=== PATIENT | male | born 1930 | race Caucasian/White ===

== ENCOUNTER 2016-07-27 08:20 | Inpatient (IN) | payer OTHER ==
[~2016-07-27] VITALS: Ht 167.6 cm; Wt 80.2 kg
[~2016-07-27 08:20] MED LIST: ASPEC325 PO; METO50TA17 PO; XRL10 PO
[2016-07-27] MEDS ORDERED: ONDANSETRON INJ 2 MG/ML 2 ML VIAL IV STA (08:30)
[2016-07-27] MEDS ORDERED: MoRPHine SULFATE 4 MG/ML 1 ML CARP\\VIAL IV PRN (08:30)
--- NOTE | 2016-07-27 08:38 | EMERGENCY ROOM VISIT NOTE ---
History Report prepared by Kevin: Darian Prescott Under the Supervision of: Dr. Ollie Gaytan D.O. First contact with patient: 08:25 Chief Complaint: WEAKNESS Stated Complaint: WEAKNESS History of Present Illness The patient is an 86 year old male who presents to the Emergency Room with complaints of intermittent left-sided abdominal pain that started yesterday. He was brought here via ambulance. He does not know whether he was given any medications on the way in. The patient says nothing makes the pain better or worse. He denies any nausea, vomiting, chest pain, shortness of breath, coughing , or urinary symptoms. The patient has no reported history of diverticulitis. He does not give himself shots. The patient has no breathing problems. He had a colonoscopy before but has no cancer history. Per the nursing staff, the patient is here for weakness and an inability to ambulate. He is 88% on room air. Source of History: patient, nursing staff Onset: Yesterday Position: abdomen (right sided) Timing: intermittent Associated Symptoms: + weakness, No SOB, No chest pain, No cough, No nausea , No urinary symptoms, No vomiting Note: Associated symptoms: Inability to ambulate. Review of Systems See HPI for pertinent positives & negatives. A total of 10 systems reviewed and were otherwise negative. Past Medical & Surgical Medical Problems: (1) BPH (benign prostatic hyperplasia) (2) Heart disease Surgical Problems: (1) Hx of heart artery stent Family History No pertinent family history Social History Smoking Status: Former Smoker Marital Status: Housing Status: lives with family Occupation Status: employed Current/Historical Medications Scheduled , 1 OR BID Allopurinol (Zyloprim *), 300 MG PO DAILY Atorvastatin (Lipitor), 20 MG PO DAILY Diltiazem Hcl Cd (Cardizem Cd *), 120 MG PO DAILY Esomeprazole Magnesium (Nexium), 40 MG PO DAILY Metoprolol Tartrate (Lopressor) (Lopressor), 25 MG PO BID Rivaroxaban (Xarelto), 20 MG PO DAILY Valacyclovir (Valtrex), 1,000 MG PO TID Scheduled PRN Tramadol (Ultram), 50 MG PO Q4H PRN for Pain Allergies Coded Allergies: Latex1 -Allergic Contact Dermititis (Verified Allergy, Unknown, Unknown rxn, 07/27/16) Adhesives (Verified Adverse Reaction, Unknown, Unknown Rxn, 07/27/16) Physical Exam Vital Signs Date Time Temp Pulse Resp B/P Pulse Ox O2 Delivery O2 Flow Rate FiO2 07/27/16 13:31 76 20 140/81 95 Nasal Cannula 3.0 07/27/16 12:30 79 16 130/65 96 Nasal Cannula 2.0 07/27/16 12:19 78 07/27/16 11:00 77 15 131/62 Nasal Cannula 3.0 07/27/16 10:00 78 16 123/58 95 Room Air 07/27/16 08:26 88 07/27/16 08:25 37.7 86 16 146/86 88 Room Air Physical Exam GENERAL: Patient is awake, alert, and somewhat anxious appearing. EYES: The conjunctivae are clear. The pupils are round and reactive. EARS, NOSE, MOUTH AND THROAT: The nose is without any evidence of any deformity. Mucous membranes are moist tongue is midline NECK: The neck is nontender and supple. RESPIRATORY: Lung sounds diminished throughout. Scattered rhonchi in all lung baker. Tachypnea noted. CARDIOVASCULAR: Heart sounds were tachycardic but regular. No definite murmur appreciated. GASTROINTESTINAL: Abdomen was mildly distended. Left lower quadrant tenderness to palpation, mild guarding was noted in left lower quadrant. MUSCULOSKELETAL/EXTREMITIES: There is no evidence of gross deformity full range of motion is noted in the hips and shoulders SKIN: Pedal edema bilaterally. NEUROLOGIC: Patient is awake and oriented to place, person, and situation. Strength was symmetric. Medical Decision & Procedures ER Provider Diagnostic Interpretation: X ray results and stated below per my interpretation and radiology interpretation. Other radiology results per my review and radiologist interpretation: CHEST ONE VIEW PORTABLE HISTORY: Generalized abdominal pain. COMPARISON: Chest 09/10/2014. FINDINGS: No pneumothorax. The heart is mildly enlarged. Widening of the superior mediastinum may be due to the portable technique. There is interstitial and vascular thickening. Left basilar densities. Possible trace left pleural effusion. IMPRESSION: 1. Cardiomegaly with interstitial and vascular thickening. This favors mild congestive change. 2. Trace left pleural effusion. 3. Superior mediastinal widening may be due to the portable technique. 4. Patchy densities at the left lung base may represent atelectasis or pneumonia. Electronically signed by: Hany Medina M.D. 07/27/2016 9:[address] OF THE ABDOMEN AND PELVIS WITHOUT CONTRAST CLINICAL HISTORY: Left lower quadrant pain. COMPARISON STUDY: No previous studies for comparison. TECHNIQUE: Axial images of the abdomen and pelvis were obtained without IV contrast. Images were reviewed in the axial, sagittal, and coronal planes. FINDINGS: Visualized portions of the lung bases demonstrate groundglass and linear opacities which likely reflect atelectasis. Evaluation of the abdomen and pelvis is suboptimal on this unenhanced exam. Unenhanced images of the liver, spleen, adrenal glands, kidneys and pancreas are unremarkable. There is mild distention of the gallbladder. There are several parapelvic cysts. There are no renal, ureteral or bladder calculi. There is no evidence for a bowel obstruction. Note is made of extensive left colon diverticulosis without evidence for acute diverticulitis. Note is made of a bilobed low-attenuation lobulated abnormality within the left hemipelvis that measures 9 x 5.3 x 4.5 cm. This is predominantly water attenuation. This contains a calcification. This is suboptimally assessed on this unenhanced exam. Of note, there is moderate infiltration adjacent to the left external iliac and common femoral arteries and veins with loss of fat planes between these 2 vessels. There is slight dilatation of the left common femoral vein. No suspicious osseous lesion is present. There is mild dilatation of the infrarenal abdominal aorta without aneurysmal dilatation. No lymphadenopathy is present. The appendix is normal. Note is made of mild infiltration of the anterior abdominal wall along the left aspect of the umbilicus. IMPRESSION: 1. Moderate inflammation with loss of fat plane between the left external iliac and common femoral arteries and veins. In the absence of recent surgery, the findings represent nonspecific inflammation/edema which are suboptimally assessed on this unenhanced exam. A left lower extremity venous and arterial Doppler might be considered for earlier evaluation. Differential considerations include deep venous thrombus, atypical infection or less likely AV fistula. 2. 9 x 5.3 x 4.5 cm lobulated cystic abnormality within left hemipelvis. This is nonspecific but not acute. This could reflect a perineural cyst or nerve sheath tumor. Alternately, a seroma/lymphocele could have this imaging appearance. A follow-up CT in 6 months to ensure stability is recommended. 3. Extensive left colon diverticulosis without evidence for acute diverticulitis. Electronically signed by: Aleksandar De Paz M.D. 07/27/2016 9:[address]AST CT DOSE: HISTORY: Mental status change altered MS TECHNIQUE: Multiaxial CT images of the head were performed without the use of intravenous contrast. Comparison: None. Findings: The paranasal sinuses and mastoid air cells are clear. The calvarium and skull base are intact. The ventricles and sulci are within normal limits. There is no mass, hematoma, midline shift, or acute infarct. Findings of age-related atrophy. Mild chronic small vessel change. Impression: No acute intracranial abnormality. Age-related change Electronically signed by: Ernesto Shen M.D. 07/27/2016 9:32 AM LEFT LOWER EXTREMITY ARTERIAL DOPPLER STUDY CLINICAL HISTORY: Left leg pain. COMPARISON STUDY: Abdomen and pelvis CT 07/27/2016. FINDINGS: Increased echogenicity surrounding the left common femoral artery and vein. This likely corresponds to the inflammatory change on the same day abdomen and pelvis CT. However, the left common femoral artery is widely patent and demonstrates a normal peak systolic velocity of 79 cm/s. There are triphasic waveforms at the left common femoral artery. Scattered calcified plaque seen throughout the left lower extremity arterial systems. Monophasic low velocity waveforms seen within the left peroneal and left dorsalis pedis artery. Otherwise, the remaining left lower arterial system demonstrate biphasic to triphasic waveforms with normal velocities. IMPRESSION: 1. Increased echogenicity surrounding the left common femoral artery and vein. This likely corresponds to the inflammatory change seen on the same day abdomen and pelvis CT. 2. Otherwise, the left common femoral artery is patent. 3. Low velocity monophasic waveform seen within the left peroneal and left dorsalis pedis arteries consistent with diffuse atherosclerotic disease. Otherwise, no significant stenosis or occlusion seen within the left lower extremity arterial system. Electronically signed by: Hany Medina M.D. 07/27/2016 12:19 PM LEFT LOWER EXTREMITY VENOUS DOPPLER HISTORY: Left leg pain. COMPARISON STUDY: None. FINDINGS: There is normal compressibility, flow, and augmentation within the left lower extremity deep venous system. IMPRESSION: No DVT within the left lower extremity. Electronically signed by: Hany Medina M.D. 07/27/2016 12:13 PM Laboratory Results 07/27/16 08:50 Red Blood Count 4.51, Mean Corpuscular Volume 86.9, Mean Corpuscular Hemoglobin 29.3, Mean Corpuscular Hemoglobin Concent 33.7, Mean Platelet Volume 10.5, Neutrophils (%) (Auto) 73.5, Lymphocytes (%) (Auto) 11.9, Monocytes (%) (Auto) 12.2, Eosinophils (%) (Auto) 1.6, Basophils (%) (Auto) 0.6, Neutrophils # (Auto ) 8.99, Lymphocytes # (Auto) 1.46, Monocytes # (Auto) 1.49, Eosinophils # (Auto ) 0.20, Basophils # (Auto) 0.07 07/27/16 08:50 Test 07/27/16 08:50 07/27/16 09:03 07/27/16 09:05 07/27/16 11:15 White Blood Count 12.24 K/uL (4.8-10.8) Red Blood Count 4.51 M/uL (4.7-6.1) Hemoglobin 13.2 g/dL (14.0-18.0) Hematocrit 39.2 % (42-52) Mean Corpuscular Volume 86.9 fL (80-100) Mean Corpuscular Hemoglobin 29.3 pg (25-34) Mean Corpuscular Hemoglobin Concent 33.7 g/dl (32-36) Platelet Count 237 K/uL (130-400) Mean Platelet Volume 10.5 fL (7.4-10.4) Neutrophils (%) (Auto) 73.5 % Lymphocytes (%) (Auto) 11.9 % Monocytes (%) (Auto) 12.2 % Eosinophils (%) (Auto) 1.6 % Basophils (%) (Auto) 0.6 % Neutrophils # (Auto) 8.99 K/uL (1.4-6.5) Lymphocytes # (Auto) 1.46 K/uL (1.2-3.4) Monocytes # (Auto) 1.49 K/uL (0.11-0.59) Eosinophils # (Auto) 0.20 K/uL (0-0.5) Basophils # (Auto) 0.07 K/uL (0-0.2) RDW Standard Deviation 45.5 fL (36.4-46.3) RDW Coefficient of Variation 14.3 % (11.5-14.5) Immature Granulocyte % (Auto) 0.2 % Immature Granulocyte # (Auto) 0.03 K/uL (0.00-0.02) Prothrombin Time 13.3 SECONDS (9.0-12.0) Prothromb Time International Ratio 1.2 (0.9-1.1) Activated Partial Thromboplast Time 29.0 SECONDS (21.0-31.0) Partial Thromboplastin Ratio 1.1 Anion Gap 8.0 mmol/L (3-11) Est Creatinine Clear Calc Drug Dose 55.6 ml/min Estimated GFR () 82.2 Estimated GFR (Non- 70.9 BUN/Creatinine Ratio 15.4 (10-20) Calcium Level 8.3 mg/dl (8.5-10.1) Total Bilirubin 1.2 mg/dl (0.2-1) Direct Bilirubin 0.5 mg/dl (0-0.2) Aspartate Amino Transf (AST/SGOT) 20 U/L (15-37) Alanine Aminotransferase (ALT/SGPT) 19 U/L (12-78) Alkaline Phosphatase 72 U/L (45-117) Total Creatine Kinase 161 U/L (39-308) Creatine Kinase MB 5.3 ng/ml (0.5-3.6) Creatine Kinase MB Ratio 3.3 (0-3.0) Troponin I < 0.015 ng/ml (0-0.045) Total Protein 6.4 gm/dl (6.4-8.2) Albumin 2.6 gm/dl (3.4-5.0) Lipase 123 U/L (73-393) Lyme Disease IgG Antibody NEG (NEG) Lyme Disease IgM Antibody NEG (NEG) Bedside Lactic Acid Venous 1.06 mmol/L (0.90-1.70) Venous Blood pH 7.39 (7.36-7.41) Venous Blood Partial Pressure CO2 51 mmHg (38.0-50.0) Venous Blood Partial Pressure O2 28 mmHg Venous Blood HCO3 30 mmol/L Venous Blood Oxygen Saturation < 60.0 % Venous Blood Base Excess 4.2 mmol/L Urine Color DK YELLOW Urine Appearance CLEAR (CLEAR) Urine pH 5.0 (4.5-7.5) Urine Specific [place] 1.026 (1.000-1.030) Urine Protein NEG (NEG) Urine Glucose (UA) NEG (NEG) Urine Ketones TRACE (NEG) Urine Occult Blood NEG (NEG) Urine Nitrite NEG (NEG) Urine Bilirubin NEG (NEG) Urine Urobilinogen POS (NEG) Urine Leukocyte Esterase TRACE (NEG) Urine WBC (Auto) 1-5 /hpf (0-5) Urine RBC (Auto) 0-4 /hpf (0-4) Urine Hyaline Casts (Auto) 1-5 /lpf (0-5) Urine Epithelial Cells (Auto) 10-20 /lpf (0-5) Urine Bacteria (Auto) NEG (NEG) Test 07/27/16 13:49 Laboratory results per my review. Medications Administered Medications (Trade) Dose Ordered Sig/Aretha Route Start Time Stop Time Status Last Admin Dose Admin Levofloxacin (Levaquin / D5W) 750 mg NOW STAT IV 07/27/16 09:07 07/27/16 09:08 DC 07/27/16 11:13 750 MG Levofloxacin 750 mg 750 mg NOW ONCE IV 07/27/16 10:30 07/27/16 10:31 DC 07/27/16 11:15 750 MG Sodium Chloride 500 ml @ 999 mls/hr Q31M STAT IV 07/27/16 12:26 07/27/16 12:56 DC 07/27/16 12:45 999 MLS/HR Sodium Chloride (Nss 1000ml) 1,000 ml @ 125 mls/hr Q8H STAT IV 07/27/16 12:26 07/27/16 20:25 07/27/16 13:25 125 MLS/HR ECG Indication: weakness Rate (beats per minute): 78 Rhythm: normal sinus Findings: no ectopy, other (RBBB pattern noted) Change: no significant change (from September 11 2014) ED Course 0828: The patient was evaluated in room B2. A complete history and physical examination were performed. 0830: Ordered Zofran Inj 4 mg IV, Morphine Sulfate Inj 4 mg IV PRN. 0907: Ordered Levaquin / D5W 750 mg IV. 1031: I reevaluated the patient and he is resting comfortably. 1226: Ordered NSS 1000 ml @ 125 mls/hr IV, NSS 500 ml @ 999 mls/hr IV. 1227: I reevaluated the patient and he is resting comfortably. The patient verbally expressed understanding and agreement of the treatment plan. The patient will be evaluated for further treatment. 1235: I discussed the patient with Dr. Combs - blade operator - he will evaluate the patient for further treatment. Medical Decision Differential diagnosis: Etiologies such as metabolic, infection, hypo/hyperglycemia, electrolyte abnormalities, cardiac sources, intracerebral event, toxicologic, neurologic, as well as others were entertained. Nursing notes reviewed. Additional history is obtained from the family members. The patient is an 86-year-old male who presented to the emergency apartment by ambulance. When I initially evaluated the patient he was complaining of left- sided abdominal pain. He did have a blotchy area over the left side of his abdomen but he was very tender to palpation. The patient was also found to be hypoxic and had a fever. His overall condition appear to be consistent with pneumonia which was confirmed on chest x-ray. Because of his abdominal pain as CT the abdomen and pelvis was obtained. When the patient's family arrived they made me aware that the patient has significant dementia and was recently diagnosed with left side of his abdomen shingles. This may explain the rash that was noted and also the pain but the CAT scan showed an area around his left femoral artery and vein which could be consistent with inflammation. I'm unsure of the etiology of this. Dopplers did not show any vascular compromise. I discussed the patient's laboratory and radiographic studies with him. He was treated with supple and oxygen IV fluids and IV antibiotic. He was also given IV pain medication. On subsequent reevaluation he was feeling much better. I discussed his case with his primary care physician. He has agreed to evaluate the patient in the emergency department for further management and disposition. Consults Time Called: 1233 Consulting Physician: Dr. Paige Zaidi - blade operator Returned Call: 1235 I discussed the patient with Dr. Combs - blade operator - he will evaluate the patient for further treatment. Impression Primary Impression: PNA (pneumonia) Additional Impressions: Hypoxia, Fever, Altered mental status, Abdominal pain Scribe Attestation The scribe's documentation has been prepared under my direction and personally reviewed by me in its entirety. I confirm that the note above accurately reflects all work, treatment, procedures, and medical decision making performed by me. Departure Information Dispostion Being Evaluated By Hospitalist Referrals Saqib Carey M.D. (PCP) Patient Instructions A Signature Page, My [facility]
--- NOTE | 2016-07-27 09:01 | DIAGNOSTIC IMAGING REPORT ---
CHEST ONE VIEW PORTABLE HISTORY: Generalized abdominal pain. COMPARISON: Chest 09/10/2014. FINDINGS: No pneumothorax. The heart is mildly enlarged. Widening of the superior mediastinum may be due to the portable technique. There is interstitial and vascular thickening. Left basilar densities. Possible trace left pleural effusion. IMPRESSION: 1. Cardiomegaly with interstitial and vascular thickening. This favors mild congestive change. 2. Trace left pleural effusion. 3. Superior mediastinal widening may be due to the portable technique. 4. Patchy densities at the left lung base may represent atelectasis or pneumonia. Electronically signed by: Hany Medina M.D. 07/27/2016 9:00 AM
[2016-07-27] MEDS ORDERED: LEVAQUIN 750MG / 150ML D5W IV STA (09:07)
[2016-07-27 09:17] LABS: BASO % 0.6 %; BASO ABS # 0.07 K/uL (0-0.2); COMPLETE YES; EOS % 1.6 %; HEMATOCRIT 39.2 % (42-52); IG% 0.2 %; LYMPH % 11.9 %; LYMPH ABS # 1.46 K/uL (1.2-3.4); MEAN CELL VOLUME 86.9 fL (80-100); MEAN CORPUSCULAR HEMOGLOBIN 29.3 pg (25-34); MEAN CORPUSCULAR HGB CONC 33.7 g/dl (32-36); MEAN PLATELET VOLUME 10.5 fL (7.4-10.4); MONO % 12.2 %; NEUT % 73.5 %; PLATELET COUNT 237 K/uL (130-400); RED BLOOD COUNT 4.51 M/uL (4.7-6.1); WHITE BLOOD COUNT 12.24 K/uL (4.8-10.8)
[2016-07-27 09:21] LABS: VEN BLOOD GAS BASE EXCESS 4.2 mmol/L; VENOUS BLOOD GAS PCO2 51 mmHg (38.0-50.0); VENOUS BLOOD GAS PO2 28 mmHg
[2016-07-27 09:27] LABS: INR 1.2 (0.9-1.1); PARTIAL THROMBOPLASTIN RATIO 1.1; PROTHROMBIN TIME (PATIENT) 13.3 SECONDS (9.0-12.0)
[2016-07-27 09:33] LABS: VEN BLD GAS O2 SATURATION < 60.0 %
--- NOTE | 2016-07-27 09:33 | DIAGNOSTIC IMAGING REPORT ---
HEAD CT NONCONTRAST CT DOSE: HISTORY: Mental status change altered MS TECHNIQUE: Multiaxial CT images of the head were performed without the use of intravenous contrast. Comparison: None. Findings: The paranasal sinuses and mastoid air cells are clear. The calvarium and skull base are intact. The ventricles and sulci are within normal limits. There is no mass, hematoma, midline shift, or acute infarct. Findings of age-related atrophy. Mild chronic small vessel change. Impression: No acute intracranial abnormality. Age-related change Electronically signed by: Ernesto Shen M.D. 07/27/2016 9:32 AM
[2016-07-27] MEDS ORDERED: VALA500T60 PO (09:36)
[2016-07-27] MEDS ORDERED: METO25TA56 PO (09:36)
[2016-07-27] MEDS ORDERED: XRL20 PO (09:36)
[2016-07-27] MEDS ORDERED: TRAM-10 PO (09:36)
[2016-07-27 09:38] LABS: BLOOD UREA NITROGEN 15 mg/dl (7-18); CREATININE 0.97 mg/dl (0.60-1.40); GLUCOSE 138 mg/dl (70-99)
[2016-07-27 09:39] LABS: ALT/SGPT 19 U/L (12-78); AST/SGOT 20 U/L (15-37); BUN/CREATININE RATIO 15.4 (10-20); CALCIUM 8.3 mg/dl (8.5-10.1); CARBON DIOXIDE 29 mmol/L (21-32); CHLORIDE 100 mmol/L (98-107); POTASSIUM 3.5 mmol/L (3.5-5.1); SODIUM 137 mmol/L (136-145)
[2016-07-27 09:44] LABS: ALKALINE PHOSPHATASE 72 U/L (45-117); CKMB/CK RATIO 3.3 (0-3.0)
--- NOTE | 2016-07-27 09:52 | DIAGNOSTIC IMAGING REPORT ---
CT OF THE ABDOMEN AND PELVIS WITHOUT CONTRAST CLINICAL HISTORY: Left lower quadrant pain. COMPARISON STUDY: No previous studies for comparison. TECHNIQUE: Axial images of the abdomen and pelvis were obtained without IV contrast. Images were reviewed in the axial, sagittal, and coronal planes. FINDINGS: Visualized portions of the lung bases demonstrate groundglass and linear opacities which likely reflect atelectasis. Evaluation of the abdomen and pelvis is suboptimal on this unenhanced exam. Unenhanced images of the liver, spleen, adrenal glands, kidneys and pancreas are unremarkable. There is mild distention of the gallbladder. There are several parapelvic cysts. There are no renal, ureteral or bladder calculi. There is no evidence for a bowel obstruction. Note is made of extensive left colon diverticulosis without evidence for acute diverticulitis. Note is made of a bilobed low-attenuation lobulated abnormality within the left hemipelvis that measures 9 x 5.3 x 4.5 cm. This is predominantly water attenuation. This contains a calcification. This is suboptimally assessed on this unenhanced exam. Of note, there is moderate infiltration adjacent to the left external iliac and common femoral arteries and veins with loss of fat planes between these 2 vessels. There is slight dilatation of the left common femoral vein. No suspicious osseous lesion is present. There is mild dilatation of the infrarenal abdominal aorta without aneurysmal dilatation. No lymphadenopathy is present. The appendix is normal. Note is made of mild infiltration of the anterior abdominal wall along the left aspect of the umbilicus. IMPRESSION: 1. Moderate inflammation with loss of fat plane between the left external iliac and common femoral arteries and veins. In the absence of recent surgery, the findings represent nonspecific inflammation/edema which are suboptimally assessed on this unenhanced exam. A left lower extremity venous and arterial Doppler might be considered for earlier evaluation. Differential considerations include deep venous thrombus, atypical infection or less likely AV fistula. 2. 9 x 5.3 x 4.5 cm lobulated cystic abnormality within left hemipelvis. This is nonspecific but not acute. This could reflect a perineural cyst or nerve sheath tumor. Alternately, a seroma/lymphocele could have this imaging appearance. A follow-up CT in 6 months to ensure stability is recommended. 3. Extensive left colon diverticulosis without evidence for acute diverticulitis. Electronically signed by: Aleksandar De Paz M.D. 07/27/2016 9:51 AM
[2016-07-27] MEDS ORDERED: LEVAQUIN 750MG / 150ML D5W IV ONE (10:30)
[2016-07-27 11:39] LABS: URINE APPEARANCE CLEAR (CLEAR); URINE COLOR DK YELLOW; URINE NITRITE NEG (NEG); URINE SPECIFIC GRAVITY 1.026 (1.000-1.030); UROBILINOGEN POS (NEG); ZZURINE CULT IF INDIC CATH NO
[2016-07-27 11:40] LABS: MANUAL MICROSCOPIC REQUIRED? NO; REVIEW REQ? NO; URINE BILIRUBIN NEG (NEG)
--- NOTE | 2016-07-27 12:15 | DIAGNOSTIC IMAGING REPORT ---
LEFT LOWER EXTREMITY VENOUS DOPPLER HISTORY: Left leg pain. COMPARISON STUDY: None. FINDINGS: There is normal compressibility, flow, and augmentation within the left lower extremity deep venous system. IMPRESSION: No DVT within the left lower extremity. Electronically signed by: Hany Medina M.D. 07/27/2016 12:13 PM
--- NOTE | 2016-07-27 12:21 | DIAGNOSTIC IMAGING REPORT ---
LEFT LOWER EXTREMITY ARTERIAL DOPPLER STUDY CLINICAL HISTORY: Left leg pain. COMPARISON STUDY: Abdomen and pelvis CT 07/27/2016. FINDINGS: Increased echogenicity surrounding the left common femoral artery and vein. This likely corresponds to the inflammatory change on the same day abdomen and pelvis CT. However, the left common femoral artery is widely patent and demonstrates a normal peak systolic velocity of 79 cm/s. There are triphasic waveforms at the left common femoral artery. Scattered calcified plaque seen throughout the left lower extremity arterial systems. Monophasic low velocity waveforms seen within the left peroneal and left dorsalis pedis artery. Otherwise, the remaining left lower arterial system demonstrate biphasic to triphasic waveforms with normal velocities. IMPRESSION: 1. Increased echogenicity surrounding the left common femoral artery and vein. This likely corresponds to the inflammatory change seen on the same day abdomen and pelvis CT. 2. Otherwise, the left common femoral artery is patent. 3. Low velocity monophasic waveform seen within the left peroneal and left dorsalis pedis arteries consistent with diffuse atherosclerotic disease. Otherwise, no significant stenosis or occlusion seen within the left lower extremity arterial system. Electronically signed by: Hany Medina M.D. 07/27/2016 12:19 PM
[2016-07-27] MEDS ORDERED: SODIUM CHLORIDE 0.9% 1000ML 1,000 ML IV STA (12:26)
[2016-07-27] MEDS ORDERED: SODIUM CHLORIDE 0.9% 500ML 500 ML IV STA (12:26)
[2016-07-27] MEDS ORDERED: OPTIRAY 320 IV PRN (13:00)
[2016-07-27 13:52] LABS: LYME DISEASE AB IGG NEG (NEG); LYME DISEASE AB IGM NEG (NEG)
[2016-07-27] MEDS ORDERED: NXM/40 PO (14:02)
[2016-07-27] MEDS ORDERED: ATOR-22 PO (14:02)
[2016-07-27 14:46] LABS: ARTERIAL BLD GAS O2 SATURATION 96.1 % (90-95); ARTERIAL BLOOD GAS HCO3 24 mmol/L (19-24); ARTERIAL BLOOD GAS PO2 82 mm/Hg (80-95); ARTERIAL BLOOD GAS pH 7.41 (7.35-7.45)
[2016-07-27 14:49] LABS: ALLEN TEST POS (POS); O2 ADMINISTRATION 2L
--- NOTE | 2016-07-27 14:49 | DIAGNOSTIC IMAGING REPORT ---
CHEST CT WITH CONTRAST CT DOSE: 442.42 mGy.cm HISTORY: Abnormal chest x-ray. LEFT BASE INFILTRATE VS ATELECTASIS TECHNIQUE: Multiaxial CT images of the chest were performed following the intravenous administration of contrast. COMPARISON: Chest 07/27/2016. Abdomen and pelvis CT 07/27/2016. FINDINGS: The central airways are patent. No pneumothorax. Mild emphysema. Focal consolidation along the medial aspect of the left lung apex with associated calcifications. This is consistent with chronic scarring/fibrosis with the from prior granulomatous disease. Small amount of peripheral consolidation within the base of the left lower lobe. There appears to be a trace left pleural effusion. Mild dependent changes seen at the right lung base. No suspicious lytic or blastic osseous lesions. The gallbladder remains distended. The visualized liver, spleen, and adrenal glands are unremarkable. Small hiatus hernia. No mediastinal or hilar lymphadenopathy. The heart remains enlarged. Normal caliber thoracic aorta with no evidence for dissection. The central airways are patent. IMPRESSION: 1. Small amount of peripheral consolidation within the base of the left lower lobe. This favors atelectasis. However, a pneumonia could also have a similar appearance. 2. Trace left pleural effusion. 3. 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 4. Mild emphysema. 5. The gallbladder remains distended. 6. Small hiatus hernia. Electronically signed by: Hany Medina M.D. 07/27/2016 2:47 PM Dictated Date/Time: 07/27/2016 2:37 PM
[2016-07-27] MEDS ORDERED: ONDANSETRON INJ 2 MG/ML 2 ML VIAL IV PRN (15:00)
[2016-07-27] MEDS ORDERED: TRAMADOL HCL 50 MG TAB PO PRN (15:15)
[2016-07-27] MEDS: SODIUM CHLORIDE 0.9% 1000ML 1,000 ML IV SCH ×2 (15:15→23:05)
[2016-07-27] MEDS ORDERED: [UNRECOGNIZED DRUG - OTHER] OR (15:27)
[2016-07-27] MEDS ORDERED: CRDCD120 PO (15:27)
[2016-07-27] MEDS ORDERED: ALL300 PO (15:27)
[2016-07-27 20:00] VITALS: BP 149/74; PULSE 86; TEMP 37.4; O2SAT 93; Ht 167.6 cm; Wt 80.2 kg
[2016-07-27] MEDS ORDERED: CLONAZEPAM 0.5 MG TAB PO STA (21:46)
[2016-07-27] MEDS ORDERED: DO NOT ADMINISTER PNEUMOCOCCAL VACCINE PRN ×2 (22:00)
[2016-07-27] MEDS ORDERED: PNEUMOCOCCAL ADMINISTRATION CHARGE ONE (22:15)
[2016-07-27] MEDS: RIVAROXABAN 20 MG TAB PO SCH (23:00)
[2016-07-27] MEDS: METOPROLOL TARTRATE 25 MG TAB PO SCH (23:01)
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
[2016-07-28 00:22] VITALS: BP 164/74; PULSE 83; TEMP 37.4; O2SAT 91
[2016-07-28] MEDS ORDERED: ACETAMINOPHEN 500 MG TAB PO PRN (04:15)
[2016-07-28 06:55] LABS: BASO % 0.8 %; BASO ABS # 0.08 K/uL (0-0.2); COMPLETE YES; EOS % 2.1 %; HEMATOCRIT 37.8 % (42-52); IG% 0.2 %; LYMPH ABS # 1.35 K/uL (1.2-3.4); MEAN CELL VOLUME 85.1 fL (80-100); MEAN CORPUSCULAR HEMOGLOBIN 28.4 pg (25-34); MEAN CORPUSCULAR HGB CONC 33.3 g/dl (32-36); MEAN PLATELET VOLUME 10.6 fL (7.4-10.4); MONO % 12.5 %; NEUT % 71.4 %; PLATELET COUNT 227 K/uL (130-400); RED BLOOD COUNT 4.44 M/uL (4.7-6.1); WHITE BLOOD COUNT 10.36 K/uL (4.8-10.8)
[2016-07-28 07:27] LABS: BUN/CREATININE RATIO 15.7 (10-20); CALCIUM 8.4 mg/dl (8.5-10.1); CREATININE 0.83 mg/dl (0.60-1.40); MAGNESIUM 2.2 mg/dl (1.8-2.4); POTASSIUM 3.5 mmol/L (3.5-5.1)
[2016-07-28 07:29] VITALS: BP 153/74; PULSE 81; TEMP 36.5; O2SAT 93
[2016-07-28 07:37] LABS: THYROID STIMULATING HORMONE 2.16 uIu/ml (0.300-4.500)
[2016-07-28] MEDS: DILTIAZEM HCL 120 MG CAPCR PO SCH (08:10)
[2016-07-28] MEDS: ATORVASTATIN 20 MG TAB PO SCH (08:11)
[2016-07-28] MEDS: ALLOPURINOL 300 MG TAB PO SCH (08:11)
[2016-07-28] MEDS: METOPROLOL TARTRATE 25 MG TAB PO SCH ×2 (08:11→20:37)
[2016-07-28] MEDS: PANTOprazole SOD 40 MG TAB PO SCH (08:11)
[2016-07-28 09:12] LABS: URINE APPEARANCE CLEAR (CLEAR); URINE BILIRUBIN NEG (NEG); URINE COLOR YELLOW; URINE NITRITE NEG (NEG); URINE SPECIFIC GRAVITY 1.008 (1.000-1.030); UROBILINOGEN POS (NEG)
[2016-07-28] MEDS: SODIUM CHLORIDE 0.9% 1000ML 1,000 ML IV SCH ×2 (09:29→20:36)
[2016-07-28 09:34] LABS: MANUAL MICROSCOPIC REQUIRED? NO; REVIEW REQ? NO
[2016-07-28] MEDS: LEVOFLOXACIN / D5W 750 MG in PREMIXED IN D5W 150 ML IV SCH (11:27)
[2016-07-28 15:09] VITALS: BP 117/65; PULSE 57; TEMP 36.7; O2SAT 92
[2016-07-28] MEDS: RIVAROXABAN 20 MG TAB PO SCH (18:20)
[2016-07-28 20:35] VITALS: BP 133/64; PULSE 64; O2SAT 93
[2016-07-28] MEDS: CLONAZEPAM 0.5 MG TAB PO SCH (20:36)
--- NOTE | 2016-07-29 00:42 | PROGRESS NOTE ---
DATE: 07/28/2016 SUBJECTIVE: An 86-year-old male admitted with multiple medical problems including suspected left lower lobe pneumonia, herpes zoster involving the left T12 dermatome, general debilitation and weakness. Problem with his balance and equilibrium. He does have coronary artery disease. History of paroxysmal atrial fibrillation with rapid ventricular response and history of supraventricular tachycardia. The patient was admitted. He did not sleep well last night. He is feeling tired. He remained calm. There was no evidence of any agitation, but he does have confusion related to his dementia. He denied any headache or dizziness or lightheadedness. No chest pain, no shortness of breath. No cough. No abdominal pain, no nausea, no vomiting. The only pain he is still experiencing is in the left lower quadrant and groin area related to the herpes infection. He denied any pain in his back or extremities. PHYSICAL EXAMINATION: GENERAL: Well developed, in no distress. VITAL SIGNS: Blood pressure 153/74, pulse 81, respiration 20, temperature 36.5, oxygen saturation 93% on room air. SKIN: Warm and dry. He does have residual rash in the left lower quadrant. HEENT: No mucosal abnormality. NECK: No JVD. No adenopathy. HEART: Regular heart sounds. LUNGS: No evidence of any wheezing or rhonchi. ABDOMEN: Soft. He still has tenderness in the left lower quadrant related to his herpes zoster infection. BACK: No spinal tenderness. EXTREMITIES: No edema, clubbing, or cyanosis. TODAY'S LABORATORY TESTS: WBC count 10,360, hemoglobin 12.6, hematocrit 37.8, platelet count 227,000. Sodium 140, potassium 3.5, chloride 104, CO2 of 26, BUN 13, creatinine 0.83, glucose 110, calcium 8.4, magnesium 2.2, TSH 2.16. T4 of 8.7. One blood culture was reported this morning to be growing gram negative bacilli. Further identification and sensitivity is pending. A urinalysis was done this morning. He did have trace leukocyte esterase, but only 1-5 wbc's per high power field. ASSESSMENT: 1. Suspected left lower lobe pneumonia. 2. Generalized weakness and debilitation. 3. Bacteremia. Final identification of the gram negative bacilli is pending. 4. Possible urinary tract infection. 5. Coronary artery disease. 6. Dementia. PLAN: 1. Continue the same medications. 2. He is on IV Levaquin. He has remained afebrile, and his WBC count has normalized. 3. We will wait for the final culture results. 4. Continue close observation. 5. Physical and occupational therapies will be ordered.
[2016-07-29 01:36] VITALS: BP 147/73; PULSE 72; TEMP 36.3; O2SAT 92
[2016-07-29] MEDS: SODIUM CHLORIDE 0.9% 1000ML 1,000 ML IV SCH ×3 (06:42→23:40)
[2016-07-29 07:16] LABS: BASO % 0.7 %; BASO ABS # 0.06 K/uL (0-0.2); COMPLETE YES; EOS % 3.8 %; HEMATOCRIT 35.9 % (42-52); IG% 0.4 %; LYMPH % 20.2 %; LYMPH ABS # 1.69 K/uL (1.2-3.4); MEAN CELL VOLUME 84.7 fL (80-100); MEAN CORPUSCULAR HEMOGLOBIN 28.5 pg (25-34); MEAN CORPUSCULAR HGB CONC 33.7 g/dl (32-36); MEAN PLATELET VOLUME 10.4 fL (7.4-10.4); MONO % 12.4 %; NEUT % 62.5 %; PLATELET COUNT 256 K/uL (130-400); RED BLOOD COUNT 4.24 M/uL (4.7-6.1); WHITE BLOOD COUNT 8.38 K/uL (4.8-10.8)
[2016-07-29 07:41] LABS: BUN/CREATININE RATIO 15.9 (10-20); CREATININE 0.76 mg/dl (0.60-1.40); MAGNESIUM 2.2 mg/dl (1.8-2.4); POTASSIUM 3.6 mmol/L (3.5-5.1)
[2016-07-29 07:46] VITALS: BP 145/66; PULSE 63; TEMP 36.5; O2SAT 92
[2016-07-29] MEDS: PANTOprazole SOD 40 MG TAB PO SCH (09:50)
[2016-07-29] MEDS: RIVAROXABAN 20 MG TAB PO SCH (09:51)
[2016-07-29] MEDS: METOPROLOL TARTRATE 25 MG TAB PO SCH ×2 (09:51→20:20)
[2016-07-29] MEDS: DILTIAZEM HCL 120 MG CAPCR PO SCH (09:51)
[2016-07-29] MEDS: ATORVASTATIN 20 MG TAB PO SCH (09:52)
[2016-07-29] MEDS: ALLOPURINOL 300 MG TAB PO SCH (09:52)
[2016-07-29] MEDS: LEVOFLOXACIN / D5W 750 MG in PREMIXED IN D5W 150 ML IV SCH (11:27)
[2016-07-29 11:58] VITALS: BP 122/72; PULSE 60; O2SAT 92
[2016-07-29] MEDS ORDERED: MAGNESIUM HYDROXIDE SUSP 30 ML UDC PO PRN (15:30)
--- NOTE | 2016-07-29 15:43 | PROGRESS NOTE ---
DATE: 07/29/2016 DATE: 07/29/2016. SUBJECTIVE: An 86-year-old male admitted with multiple problems includin. Generalized weakness and debilitation. 2. Abnormal chest x-ray with suspicious infiltrate in the left lower base. 3. Herpes zoster involving the left T12 dermatome. 4. Bacteremia with gram negative bacilli, identification pending. 5. Coronary artery disease. 6. Dementia. 7. History of paroxysmal atrial fibrillation. 8. History of supraventricular tachycardia. The patient was admitted. All his cultures were done. He was started on IV Levaquin. Overall, his condition has improved, especially this morning. He looks much improved. He is quite awake and alert and calm. He is not having any problem during the night. He has no headache, no dizziness. No chest pain, no shortness of breath. The left lower abdominal pain has also subsided. Still residual but to a much lesser degree. No pain in his back or extremities. PHYSICAL EXAMINATION: GENERAL: Well-developed. No distress. VITAL SIGNS: Blood pressure 145/66, pulse 63, respiration 18, temperature 36.5, oxygen saturation 92% on room air. SKIN: Warm and dry. No rash. HEAD, EYES, EARS, NOSE, AND THROAT: No evidence of any mucosal abnormality. NECK: No JVD. No adenopathy. HEART: Regular heart sounds. LUNGS: Clear. ABDOMEN: Soft. There is still only very minimal residual tenderness over the skin area in the left lower quadrant. No guarding, no rebound. No organomegaly or masses. Good bowel sounds. BACK: No spinal tenderness. EXTREMITIES: No edema, clubbing, or cyanosis. LABORATORY TESTS: WBC count 8380, hemoglobin 12.1, hematocrit 35.9, platelets 247,000. Sodium 145, potassium 3.6, chloride 110, CO2 26, BUN 12, creatinine 0.76, glucose 128, calcium 8.0, magnesium 2.2. His blood culture is growing gram negative bacilli. It is indicated that possibly pseudomonas, but the final report is not back yet. His urine culture was negative. ASSESSMENT: 1. Gram negative bacilli bacteremia. 2. Generalized weakness and debilitation. 3. Herpes zoster. 4. Coronary artery disease. 5. Generalized weakness. PLAN: 1. Continuing his same medications. 2. Waiting for the final culture results. 3. Physical and occupational therapy. 4. I spoke with his daughter this morning who was in his room.
[2016-07-29 16:32] VITALS: BP 142/72; PULSE 66; TEMP 36.4; O2SAT 91
[2016-07-29] MEDS: DOCUSATE SODIUM 100 MG CAP PO SCH (17:31)
[2016-07-29] MEDS: CLONAZEPAM 0.5 MG TAB PO SCH (20:19)
[2016-07-29 23:18] VITALS: BP 180/77; PULSE 68; TEMP 37; O2SAT 93
[2016-07-30 06:24] LABS: BASO % 0.9 %; BASO ABS # 0.08 K/uL (0-0.2); COMPLETE YES; EOS % 5.1 %; HEMATOCRIT 37.6 % (42-52); IG% 0.7 %; LYMPH % 21.5 %; LYMPH ABS # 1.91 K/uL (1.2-3.4); MEAN CORPUSCULAR HEMOGLOBIN 29.1 pg (25-34); MEAN CORPUSCULAR HGB CONC 33.8 g/dl (32-36); MEAN PLATELET VOLUME 10.5 fL (7.4-10.4); MONO % 12.5 %; NEUT % 59.3 %; PLATELET COUNT 260 K/uL (130-400); RED BLOOD COUNT 4.37 M/uL (4.7-6.1)
[2016-07-30 06:51] LABS: BUN/CREATININE RATIO 10.6 (10-20); CREATININE 0.87 mg/dl (0.60-1.40); MAGNESIUM 2.5 mg/dl (1.8-2.4); POTASSIUM 3.5 mmol/L (3.5-5.1)
[2016-07-30 08:00] VITALS: BP 132/66; PULSE 65; TEMP 37.3; O2SAT 92
[2016-07-30] MEDS: DOCUSATE SODIUM 100 MG CAP PO SCH ×2 (09:16→21:30)
[2016-07-30] MEDS: PANTOprazole SOD 40 MG TAB PO SCH (09:16)
[2016-07-30] MEDS: ATORVASTATIN 20 MG TAB PO SCH (09:17)
[2016-07-30] MEDS: DILTIAZEM HCL 120 MG CAPCR PO SCH (09:17)
[2016-07-30] MEDS: ALLOPURINOL 300 MG TAB PO SCH (09:17)
[2016-07-30] MEDS: METOPROLOL TARTRATE 25 MG TAB PO SCH ×2 (09:18→21:31)
[2016-07-30] MEDS: LEVOFLOXACIN / D5W 750 MG in PREMIXED IN D5W 150 ML IV SCH (11:16)
[2016-07-30] MEDS: SODIUM CHLORIDE 0.9% 1000ML 1,000 ML IV SCH (14:49)
[2016-07-30 16:00] VITALS: O2SAT 92
[2016-07-30 16:15] VITALS: BP 132/70; PULSE 61
[2016-07-30 16:54] VITALS: BP 185/82; PULSE 72; TEMP 36.6; O2SAT 98
--- NOTE | 2016-07-30 17:38 | PROGRESS NOTE ---
DATE: 07/30/2016 An 86-year-old male, admitted with multiple medical problems including generalized weakness. He is suspected of having left lower lobe pneumonia. He had a left T12 dermatome herpes zoster. He also has bacteremia and the final culture results indicated Pseudomonas aeruginosa. He is on IV Levaquin. His medical problems also include coronary artery disease, hyperglycemia, dementia and history of paroxysmal atrial fibrillation. His condition has improved. He remains afebrile. He is resting comfortably. He denied any headache, dizziness or lightheadedness. No chest pain. No shortness of breath. No abdominal pain, no nausea, no vomiting. The pain that he was having in the left lower quadrant which was related to the skin infection is subsiding, but not completely resolved. He denied any pain in his back or extremities. PHYSICAL EXAMINATION: GENERAL: Well-developed, in no distress. VITAL SIGNS: Blood pressure 132/66, pulse 65, respirations 18, temperature 37.3 and oxygen saturation 92% on room air. SKIN: Warm and dry. He still has a residual rash in the left lower quadrant. HEENT: No mucosal abnormality. NECK: No JVD, no adenopathy. HEART: Regular heart sounds. A 2/6 systolic murmur. LUNGS: Clear. ABDOMEN: Soft, nontender, without organomegaly or masses. Good bowel sounds. BACK: No spinal or CVA tenderness. EXTREMITIES: No edema, clubbing or cyanosis. TODAY'S LABORATORY TESTS: WBC count 8900, hemoglobin 12.7, hematocrit 37.6 and platelet count 260,000. Sodium 145, potassium 3.5, chloride 109, CO2 30, BUN 9, creatinine 0.87, glucose 164, calcium 8.0 and magnesium 2.5. ASSESSMENT: 1. Bacteremia, secondary to Pseudomonas aeruginosa. 2. Cellulitis, left lower quadrant. 3. Herpes zoster, involving the left T12 dermatome. 4. General fatigue. 5. Coronary artery disease. 6. History of paroxysmal atrial fibrillation. 7. Dementia. PLAN: 1. I, at this point, suspect that what happened was his herpes zoster infection involving the left lower quadrant in the distribution of the left T12 dermatome. I suspect that he had a secondary infection secondary to Pseudomonas aeruginosa and that is the source of his bacteremia. Pneumonia is less likely based on the fact that he is really completely asymptomatic. He has not had any cough, any shortness of breath or any respiratory symptoms. 2. Continue his IV Levaquin. 3. We will discontinue his IV fluids. 4. Continue working with his therapies. 5. He will need to be on IV antibiotics for at least another 48 hours. MICHELL
[2016-07-30] MEDS: RIVAROXABAN 20 MG TAB PO SCH (18:09)
[2016-07-30] MEDS: CLONAZEPAM 0.5 MG TAB PO SCH (21:29)
[2016-07-30 21:36] VITALS: BP 170/72; PULSE 76
[2016-07-30 23:57] VITALS: BP 148/73; PULSE 72; TEMP 36.4; O2SAT 92
[2016-07-31] MEDS: SODIUM CHLORIDE 0.9% 1000ML 1,000 ML IV SCH ×2 (01:43→09:07)
[2016-07-31] MEDS: PANTOprazole SOD 40 MG TAB PO SCH (09:06)
[2016-07-31] MEDS: DOCUSATE SODIUM 100 MG CAP PO SCH ×2 (09:06→20:05)
[2016-07-31] MEDS: METOPROLOL TARTRATE 25 MG TAB PO SCH ×2 (09:06→20:07)
[2016-07-31] MEDS: ALLOPURINOL 300 MG TAB PO SCH (09:07)
[2016-07-31] MEDS: ATORVASTATIN 20 MG TAB PO SCH (09:07)
[2016-07-31] MEDS: DILTIAZEM HCL 120 MG CAPCR PO SCH (09:07)
[2016-07-31 09:09] VITALS: BP 159/74; PULSE 60; TEMP 36.6; O2SAT 95
[2016-07-31] MEDS: LEVOFLOXACIN / D5W 750 MG in PREMIXED IN D5W 150 ML IV SCH (11:33)
[2016-07-31 15:26] VITALS: BP 127/58; PULSE 56; TEMP 36.4; O2SAT 92
[2016-07-31] MEDS: RIVAROXABAN 20 MG TAB PO SCH (17:14)
[2016-07-31] MEDS ORDERED: NURSING VERBAL MED ORDER ONE (18:30)
[2016-07-31] MEDS: CLONAZEPAM 0.5 MG TAB PO SCH (20:05)
--- NOTE | 2016-07-31 21:04 | POST OPERATIVE BRIEF NOTE ---
An 86-year-old male, admitted with multiple problems includin. Generalized weakness. 2. Dehydration. 3. Herpes zoster involving the left T12 dermatome. 4. Cellulitis of the same area. 5. Pseudomonas bacteremia. 6. Coronary artery disease. 7. History of supraventricular tachycardia. 8. History of paroxysmal atrial fibrillation. The patient was admitted. Cultures were done. He was started on IV Levaquin. His condition remains quite stable at this point. He has markedly improved. He has not had any fever. No chills. He does have dementia, but he has been calm and very cooperative during his hospitalization. He denies any chest pain, no shortness of breath. No abdominal pain except in the area of the cellulitis in the left lower quadrant, but the pain has markedly improved. No pain in his back or extremities. PHYSICAL EXAMINATION: GENERAL: Well developed, in no distress. Vital signs: Blood pressure 159/74, pulse 60, respirations 18, temperature 36.6, oxygen saturation 95% on room air. SKIN: Warm and dry. No rash. HEENT: No mucosal abnormality. NECK: No JVD, no adenopathy. HEART: Regular heart sounds. LUNGS: Clear. ABDOMEN: Soft, slight tenderness in the left lower quadrant. No guarding, no rebound. Residual rash with areas of skin induration. BACK: No spinal tenderness. EXTREMITIES: No edema, clubbing or cyanosis. ASSESSMENT: 1. Pseudomonas bacteremia. 2. Cellulitis, left lower abdominal quadrant. 3. Herpes zoster, left T12 dermatome. 4. Dehydration. 5. Dementia. 6. Coronary artery disease. 7. History of paroxysmal atrial fibrillation. PLAN: 1. Overall his condition is improving. 2. Continuing all his medications without any change including his IV Levaquin. 3. Proceeding with physical and occupational therapy. Actually, the patient and his family reported to me this evening that he was able to walk in the hallway without assistance. 4. Will continue IV antibiotics for another 24-48 hours. Then I will switch him to oral Levaquin. I anticipate that he will go home once stable.
[2016-07-31 23:59] VITALS: O2SAT 94
[2016-08-01 00:01] VITALS: BP 149/68; PULSE 58; TEMP 37.1; O2SAT 94
[2016-08-01] MEDS: ATORVASTATIN 20 MG TAB PO SCH (07:24)
[2016-08-01] MEDS: ALLOPURINOL 300 MG TAB PO SCH (07:24)
[2016-08-01] MEDS: METOPROLOL TARTRATE 25 MG TAB PO SCH ×2 (07:24→19:58)
[2016-08-01 07:25] VITALS: BP 164/77; PULSE 61; TEMP 36.3; O2SAT 95
[2016-08-01] MEDS: DILTIAZEM HCL 120 MG CAPCR PO SCH (07:25)
[2016-08-01] MEDS: DOCUSATE SODIUM 100 MG CAP PO SCH ×2 (07:25→19:58)
[2016-08-01] MEDS: PANTOprazole SOD 40 MG TAB PO SCH (07:25)
[2016-08-01 10:44] LABS: BASO % 1.1 %; COMPLETE YES; EOS % 4.1 %; HEMATOCRIT 36.7 % (42-52); LYMPH % 24.7 %; LYMPH ABS # 2.31 K/uL (1.2-3.4); MEAN CORPUSCULAR HEMOGLOBIN 28.7 pg (25-34); MEAN CORPUSCULAR HGB CONC 33.8 g/dl (32-36); MEAN PLATELET VOLUME 9.6 fL (7.4-10.4); MONO % 12.3 %; NEUT % 55.8 %; PLATELET COUNT 298 K/uL (130-400); RED BLOOD COUNT 4.32 M/uL (4.7-6.1); WHITE BLOOD COUNT 9.37 K/uL (4.8-10.8)
[2016-08-01 11:14] LABS: BUN/CREATININE RATIO 11.5 (10-20); CALCIUM 8.5 mg/dl (8.5-10.1); CREATININE 0.95 mg/dl (0.60-1.40); POTASSIUM 3.6 mmol/L (3.5-5.1)
[2016-08-01] MEDS: LEVOFLOXACIN / D5W 750 MG in PREMIXED IN D5W 150 ML IV SCH (11:14)
[2016-08-01 11:17] LABS: ALB/GLOB RATIO 0.6 (0.9-2)
[2016-08-01 16:00] VITALS: O2SAT 95
[2016-08-01] MEDS: RIVAROXABAN 20 MG TAB PO SCH (16:51)
[2016-08-01 19:55] VITALS: BP 160/72; PULSE 62; O2SAT 93
[2016-08-01] MEDS: CLONAZEPAM 0.5 MG TAB PO SCH (19:55)
[2016-08-01 23:31] VITALS: BP 160/74; PULSE 66; TEMP 37.1; O2SAT 91
--- NOTE | 2016-08-01 23:40 | PROGRESS NOTE ---
DATE: 08/01/2016 An 86-year-old male, admitted with multiple problems includin. Generalized weakness. 2. Herpes zoster, involving the left T12 dermatome. 3. Cellulitis of the left lower quadrant. 4. Pseudomonas bacteremia. 5. Coronary artery disease. 6. Arterial hypertension. 7. Paroxysmal atrial fibrillation. The patient was admitted. He was continued on Valtrex, which was started prior to his admission. Also, he was started on Levaquin 750 mg daily. Initially, on his CT scan of the chest there was a suspicion that he may have a left lower lobe infiltrate, but clinically there was no evidence of any pneumonia, so this diagnosis was not really confirmed. What became more obvious is the fact that he had cellulitis of the left lower leg and his blood cultures grew Pseudomonas aeruginosa. Most likely, he had infection of the skin related to his herpes zoster and subsequently he had a bacterial infection with bacteremia. He denied any headache. No dizziness, no lightheadedness. No chest pain, no shortness of breath. No abdominal pain, no nausea, no vomiting. No pain in his back or extremities. He also has dementia, but remained quite calm and cooperative during his hospitalization. He has been receiving physical and occupational therapies and he has done well. PHYSICAL EXAMINATION: GENERAL: Well-developed, in no distress. VITAL SIGNS: Blood pressure 164/77, pulse 61, respirations 16, temperature 36.3 and oxygen saturation 95% on room air. SKIN: Warm and dry. No rash. The left lower quadrant rash is mostly resolved. HEENT: No mucosal abnormality. NECK: No JVD, no adenopathy. HEART: Regular heart sounds. LUNGS: Clear. ABDOMEN: Soft, nontender. BACK: No spinal tenderness. EXTREMITIES: No edema, clubbing or cyanosis. TODAY'S LABORATORY TESTS: WBC count 9370, hemoglobin 12.4, hematocrit 36.7 and platelet count 298,000. Sodium 143, potassium 3.6, chloride 107, CO2 31, BUN 11, creatinine 0.95, glucose 134, calcium 8.5, total bilirubin 0.9, AST 28, ALT 31, alkaline phosphatase 61, total protein 5.8 and albumin 2.2. ASSESSMENT: 1. Herpes zoster, left T12 dermatome. 2. Cellulitis. 3. Pseudomonas bacteremia. 4. Coronary artery disease. 5. Arterial hypertension. 6. Dementia. PLAN: 1. Overall, his condition has improved. He is not having any problem at this point. He remains afebrile. His WBC count has normalized. 2. He is on Levaquin 750 mg IV daily and I intend to discontinue the medication; so tomorrow will be his last dose. 3. If he remains stable, then I will send him home tomorrow morning.
[2016-08-02 07:12] VITALS: BP 149/68; PULSE 58; TEMP 36.4; O2SAT 93
[2016-08-02] MEDS ORDERED: LEVO1TAB33 PO (08:36)
--- NOTE | 2016-08-02 08:39 | Discharge Instructions ---
Discharge Instructions Admission Reason for Admission: Lll Pneum, L T12 [place], Paf, Dementia Discharge Discharge Diagnosis / Problem: HERPES ZOOSTER. CELLULITIS. PSEUDOMONAS BACTEREMIA Discharge Goals Goal(s): Decrease discomfort, Improve function, Increase independence, Improve disease control, Improve nutritional status Activity Recommendations Activity Limitations: resume your previous activity . Instructions / Follow-Up Instructions / Follow-Up DR AWAD IN ONE WEEK Current Hospital Diet Patient's current hospital diet: Regular Diet Discharge Diet Recommended Diet: AHA Diet (Heart Healthy) Pending Studies Studies pending at discharge: no Medical Emergencies . Who to Call and When: Medical Emergencies: If at any time you feel your situation is an emergency, please call 911 immediately. . Non-Emergent Contact Non-Emergency issues call your: Primary Care Provider . . "Provider Documentation" section prepared by Saqib Awad. VTE Core Measure Inpt VTE Proph given/why not?: Other Anticoagulation
[2016-08-02] MEDS: ALLOPURINOL 300 MG TAB PO SCH (08:41)
[2016-08-02] MEDS: ATORVASTATIN 20 MG TAB PO SCH (08:41)
[2016-08-02] MEDS: DILTIAZEM HCL 120 MG CAPCR PO SCH (08:41)
[2016-08-02] MEDS: PANTOprazole SOD 40 MG TAB PO SCH (08:41)
[2016-08-02 08:42] VITALS: PULSE 62
[2016-08-02] MEDS: DOCUSATE SODIUM 100 MG CAP PO SCH (08:42)
[2016-08-02] MEDS: METOPROLOL TARTRATE 25 MG TAB PO SCH (08:42)
[2016-08-02 10:12] VITALS: BP 149/68; PULSE 62; TEMP 36.4; O2SAT 93
[2016-08-02] MEDS: LEVOFLOXACIN / D5W 750 MG in PREMIXED IN D5W 150 ML IV SCH (11:00)
--- NOTE | 2016-08-02 21:48 | PROGRESS NOTE ---
DATE: 08/02/2016 SUBJECTIVE: An 86-year-old male admitted with multiple problems includin. Generalized weakness. 2. Herpes zoster involving the left T12 dermatome. 3. Cellulitis of the same area. 4. Pseudomonas aeruginosa bacteremia. 5. Coronary artery disease. 6. Paroxysmal atrial fibrillation. 7. Dementia. Overall, his condition has improved. He remained afebrile. His WBC count normalized. The rash and the pain in his left lower quadrant area resolved. He is tolerating his diet and he is doing well in therapy. He denied any headache, no dizziness, no lightheadedness. No chest pain, no shortness of breath. No abdominal pain, no nausea, no vomiting. No problem with his bowel movements. No problem urinating. No pain in his back or extremities. PHYSICAL EXAMINATION: GENERAL: Well developed in no distress. VITAL SIGNS: Blood pressure 149/68, pulse 58, respirations 20, temperature 36.4, oxygen saturation 93% on room air. SKIN: Warm and dry. No rash. HEENT: No evidence of any mucosal abnormality. NECK: Supple. Nontender. No adenopathy. No thyromegaly. No JVD. HEART: Regular heart sounds without any murmur, rub or gallop. LUNGS: Clear. ABDOMEN: Soft, nontender. BACK: No spinal tenderness. EXTREMITIES: No edema, clubbing, or cyanosis. ASSESSMENT: 1. Herpes zoster, left T12 dermatome. 2. Cellulitis involving the same area. 3. Pseudomonas bacteremia. 4. Generalized weakness. 5. Coronary artery disease. 6. Paroxysmal atrial fibrillation. 7. Dementia. PLAN: 1. Overall, his condition has improved. 2. Continuing Levaquin 750 mg daily for an additional 7 days. 3. Tolerating his ambulation. Tolerating his diet. Afebrile. WBC count normalized. 4. Discharged home today. 5. Office followup in 1 week.
--- NOTE | 2016-08-15 22:48 | DISCHARGE SUMMARY ---
DISCHARGE DIAGNOSES: 1. Pseudomonas bacteremia. 2. Cellulitis, left lower abdominal wall. 3. Herpes zoster involving the left T12 dermatome. 4. Coronary artery disease. 5. Paroxysmal atrial fibrillation. 6. Arterial hypertension. 7. Dementia. DISCHARGE MEDICATIONS: 1. Levofloxacin 750 mg daily for 7 days. 2. Allopurinol 300 mg daily. 3. Atorvastatin 20 mg daily. 4. Diltiazem CD 120 mg daily. 5. Nexium 40 mg daily. 6. Metoprolol tartrate 25 mg twice a day. 7. PreserVision 1 capsule twice a day. 8. Xarelto 20 mg daily. 9. Tramadol 50 mg every 4 hours as needed HISTORY OF PRESENT ILLNESS: An 86-year-old male admitted through the Emergency Room with multiple problems including generalized weakness, dehydration, suspected left lower lobe pneumonia and recent herpes zoster involving the left T12 dermatome. The patient with multiple medical problems including coronary artery disease with history of right coronary artery stenting in 2003, arterial hypertension, paroxysmal atrial fibrillation and supraventricular tachycardia, hyperlipidemia, hyperglycemia and dementia. The patient was seen in the office 2 days prior to his admission. He was complaining of severe left lower quadrant abdominal pain. On examination, he had a rash consistent with herpes zoster involving the distribution of the left T12 dermatome. The pain was quite severe. He was started on Valtrex 1 gram 3 times a day for 1 week and given tramadol for the pain. The patient was brought to the Emergency Room by ambulance. His family has noted that he was feeling very weak and tired. He denied any headache. No dizziness. He has been complaining of lightheadedness. He has not had any falls. No chest pain, no shortness of breath. He had no cough or sputum. No nausea or vomiting. He was still having pain in the left lower quadrant of his abdomen, the site of his herpes zoster infection. Multiple laboratory tests were done as part of his evaluation. He had a chest x-ray done. There was a questionable left lower lobe infiltrate or atelectasis. I saw the patient in the Emergency Room, and he was admitted for further treatment. PAST MEDICAL HISTORY, SOCIAL HISTORY AND FAMILY HISTORY: All as noted. ALLERGIES: HE HAD REACTION TO ADHESIVE TAPE AND LATEX. MEDICATIONS ON ADMISSION: All as noted. PHYSICAL EXAMINATION AND ADMISSION LABORATORY TESTS: All as noted. HOSPITAL COURSE: The patient was admitted to medical bed. Resuscitation level 5 as confirmed with his and his daughter. All his laboratory tests were ordered. He was started on IV Levaquin. He was continued on his Valtrex and also the tramadol for pain. He was started on IV fluid. The patient remained afebrile. He remained weak and tired initially. He developed a rash in his left lower quadrant related to his herpes zoster. Blood cultures did show evidence of bacteremia and later on, the bacteria was identified as Pseudomonas aeruginosa. It was sensitive to Levaquin. Physical and occupational therapies were ordered. Overall, his condition started to improve. His appetite improved. He was tolerating his ambulation. He did not have any fever. No other cultures were positive other than 2 blood cultures. His urine culture was negative. Once his condition improved and he remained afebrile and his WBC count normalized, arrangements were made for him to go home. Follow up in the office in 1 week.
== END 2016-08-02 11:51 | disposition home health service (06) | DRG 872 ==
LOC: ENRESERVTM → ENRESERVDT → EDBD 08:20 → C.EDB 08:21 → C.MED 15:03 → C.EDINP 15:03 → EDBEDREQ 18:57
PROVIDERS: ADMIT Internal Medicine; ATTEND Internal Medicine
DX: R78.81 Bacteremia (principal); L03.818 Cellulitis of other sites; B02.8 Zoster with other complications; R73.9 Hyperglycemia, unspecified; E86.0 Dehydration; Z87.01 Personal history of pneumonia (recurrent); I25.10 Atherosclerotic heart disease of native coronary artery without angina pectoris; Z95.5 Presence of coronary angioplasty implant and graft; M10.9 Gout, unspecified; E78.5 Hyperlipidemia, unspecified; I10 Essential (primary) hypertension; I48.0 Paroxysmal atrial fibrillation; B02.9 Zoster without complications; Z86.11 Personal history of tuberculosis; F03.90 Unspecified dementia, unspecified severity, without behavioral disturbance, psychotic disturbance, mood disturbance, and anxiety; Z87.891 Personal history of nicotine dependence; Z82.49 Family history of ischemic heart disease and other diseases of the circulatory system; Z80.1 Family history of malignant neoplasm of trachea, bronchus and lung; Z80.8 Family history of malignant neoplasm of other organs or systems; Z91.048 Other nonmedicinal substance allergy status; Z91.040 Latex allergy status; H91.90 Unspecified hearing loss, unspecified ear; Z87.19 Personal history of other diseases of the digestive system; R53.81 Other malaise; B96.5 Pseudomonas (aeruginosa) (mallei) (pseudomallei) as the cause of diseases classified elsewhere

== ENCOUNTER → 2017-01-08 | Outpatient (CLI) | payer OTHER ==
[~2017-01-08] MED LIST changes: +ALL300 PO; -ASPEC325 PO; +ATOR-22 PO; +CRDCD120 PO; +METO25TA56 PO; -METO50TA17 PO; +NXM/40 PO; +TRAM-10 PO; -XRL10 PO; +XRL20 PO; +[UNRECOGNIZED DRUG - OTHER] OR
== END | disposition home or self-care (01) ==
LOC: C.LABSPEC 14:56
PROVIDERS: ATTEND Internal Medicine
DX: N39.0 Urinary tract infection, site not specified (principal)

== ENCOUNTER → 2017-03-19 | Outpatient (CLI) | payer OTHER | END | disposition home or self-care (01) | LOC: C.LABSPEC 18:04 | PROVIDERS: ATTEND Internal Medicine | DX: N39.0 Urinary tract infection, site not specified (principal) ==

== ENCOUNTER → 2017-07-18 | Outpatient (CLI) | payer OTHER ==
[~2017-07-18] MED LIST changes: +ALLO300T2 PO; +DILT120C68 PO; +KLN/5 PO; -[UNRECOGNIZED DRUG - OTHER] OR; +[UNRECOGNIZED DRUG - OTHER] PO
[2017-07-18 15:31] LABS: BASO % 1.4 %; BASO ABS # 0.11 K/uL (0-0.2); EOS ABS # 0.32 K/uL (0-0.5); HEMATOCRIT 46.5 % (42-52); HEMOGLOBIN 15.3 g/dL (14.0-18.0); IG# 0.02 K/uL (0.00-0.02); LYMPH % 30.1 %; LYMPH ABS # 2.43 K/uL (1.2-3.4); MEAN CELL VOLUME 89.3 fL (80-100); MEAN CORPUSCULAR HEMOGLOBIN 29.4 pg (25-34); MEAN CORPUSCULAR HGB CONC 32.9 g/dl (32-36); MEAN PLATELET VOLUME 12.4 fL (7.4-10.4); MONO % 11.8 %; MONO ABS # 0.95 K/uL (0.11-0.59); NEUT % 52.5 %; NEUT ABS # 4.25 K/uL (1.4-6.5); PLATELET COUNT 184 K/uL (130-400); RED CELL DISTRIBUTION WIDTH CV 15.9 % (11.5-14.5); RED CELL DISTRIBUTION WIDTH SD 51.9 fL (36.4-46.3); WHITE BLOOD COUNT 8.08 K/uL (4.8-10.8)
[2017-07-18 15:39] LABS: ALBUMIN 3.4 gm/dl (3.4-5.0); ALT/SGPT 21 U/L (12-78); AST/SGOT 18 U/L (15-37); BLOOD UREA NITROGEN 15 mg/dl (7-18); CALCIUM 8.7 mg/dl (8.5-10.1); CARBON DIOXIDE 29 mmol/L (21-32); CHOLESTEROL 170 mg/dl (0-200); CREATININE 0.88 mg/dl (0.60-1.40); GLUCOSE 85 mg/dl (70-99); POTASSIUM 3.9 mmol/L (3.5-5.1); SODIUM 143 mmol/L (136-145)
[2017-07-18 15:42] LABS: ALKALINE PHOSPHATASE 56 U/L (45-117); LDL CHOLESTEROL (DIRECT) 115 mg/dl; TOTAL PROTEIN 7.1 gm/dl (6.4-8.2)
[2017-07-19 05:02] LABS: HEMOGLOBIN A1C 6.7 % (4.5-5.6)
== END | disposition home or self-care (01) ==
LOC: C.LABSPEC 14:47
PROVIDERS: ATTEND Internal Medicine
DX: R73.9 Hyperglycemia, unspecified (principal); I25.10 Atherosclerotic heart disease of native coronary artery without angina pectoris; I48.91 Unspecified atrial fibrillation; R13.10 Dysphagia, unspecified; N39.0 Urinary tract infection, site not specified

== ENCOUNTER → 2017-07-24 | Outpatient (CLI) | payer OTHER ==
--- NOTE | 2017-07-24 10:01 | DIAGNOSTIC IMAGING REPORT ---
(BARIUM SWALLOW) ESOPHAGUS CLINICAL HISTORY: 87 years-old Male presenting with DYSPHAGIA. TECHNIQUE: A standard air contrast barium esophagram is performed. Multiple spot images of the esophagus are acquired both upright and prone. COMPARISON: 12/04/2011. FINDINGS: The patient was able to ingest barium and the barium pill without difficulty. Normal mucosal pattern. No evidence of intrinsic or extrinsic mass lesion. No aspiration observed. Esophageal dysmotility evidenced by tertiary contractions and a corkscrew appearance. The gastroesophageal junction distended normally though the gastroesophageal junction is located superior to the diaphragmatic hiatus. Small hiatal hernia. Fluoroscopy dosage (mGy): Not available. Fluoroscopy time: 1.9 minutes. Number of fluoroscopic spot images: 23. IMPRESSION: 1. 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 2. Small hiatal hernia. Electronically signed by: Byron Mack M.D. 07/24/2017 9:59 AM Dictated Date/Time: 07/24/2017 9:57 AM
== END | disposition home or self-care (01) ==
LOC: C.RAD 09:16
PROVIDERS: ATTEND Internal Medicine
DX: R13.10 Dysphagia, unspecified (principal); R93.3 Abnormal findings on diagnostic imaging of other parts of digestive tract; K44.9 Diaphragmatic hernia without obstruction or gangrene

== ENCOUNTER → 2017-09-14 | Day surgery (SDC) | payer OTHER ==
[2017-09-05 10:25] VITALS: Ht 167.6 cm; Wt 81.8 kg
[~2017-09-14] VITALS: Ht 167.6 cm; Wt 81.8 kg
[~2017-09-14] MED LIST changes: -ALL300 PO; +CLON0.5T3 PO; -CRDCD120 PO; -KLN/5 PO; +LIDOCAINE HCL 2% 2 ML VIAL (20MG/ML) ONE; +PROPOFOL IV EMULSION 10 MG/ML 20 ML VIAL IV ONE; +SODIUM CHLORIDE 0.9% 500ML 500 ML IV ONE; -TRAM-10 PO
--- NOTE | 2017-09-14 13:05 | Endo History and Physical ---
History & Physical Date of Service: Sep 14, 2017. Chief Complaint: dysphagia Referring Physician: Dr. Combs History of Present Illness EGD for dysphagia Past Medical History High Cholesterol, Heart Disease, Hypertension, ME Past Surgical History Hx Cardiac Surgery: Yes (CARDIAC CATH X1 STENT) Hx Internal Defibrillator: No Hx Pacemaker: No Hx Abdominal Surgery: No Hx of Implantable Prosthesis: No Hx Post-Op Nausea and Vomiting: No Hx Cancer Surgery: No Hx Thoracic Surgery: No Hx Orthopedic: Yes (FOOT SURGERY ('BB' GUN)) Hx Urinary Tract Surgery: No Social History Smoking Status: Never Smoker Hx Substance Use: No Hx Alcohol Use: No Allergies Coded Allergies: Latex1 -Allergic Contact Dermititis (Verified Allergy, Unknown, SWELLING AND RASH, 09/05/17) Adhesives (Verified Adverse Reaction, Unknown, SWELLING AND RASH, 09/05/17) Current Medications Reported Home Medications Medications Dose Route/Sig Max Daily Dose Days Date Category Zyloprim (Allopurinol) 300 Mg Tab 300 Mg PO QAM 09/05/17 Reported Tiazac (Diltiazem HCl) 120 Mg Capcr 120 Mg PO QAM 09/05/17 Reported Klonopin (Clonazepam) 0.5 Mg Tab 1 Mg PO HS 09/05/17 Reported Xarelto (Rivaroxaban) 20 Mg Tab 20 Mg PO QPM 07/27/16 Reported Lopressor (Metoprolol Tartrate) 25 Mg Tab 25 Mg PO BID 07/27/16 Reported Nexium (Esomeprazole Magnesium) 40 Mg Capcr 40 Mg PO QAM 09/10/14 Reported Lipitor (Atorvastatin Calcium) 20 Mg Tab 20 Mg PO QAM 09/10/14 Reported Preservision Arareds 1 Cap PO BID 10/04/09 Reported Vital Signs Weight (Kilograms): 81.82 Height (Feet): 5 Height (Inches): 6 Date Time Temp Pulse Resp B/P (MAP) Pulse Ox O2 Delivery O2 Flow Rate FiO2 09/14/17 12:38 36.2 50 20 156/66 (96) 96 Room Air Physical Exam General Appearance: WD/WN, no apparent distress Respiratory/Chest: Auscultation: breath sounds normal Cardiovascular: Heart Auscultation: RRR Abdomen: Bowel Sounds: normal Inspection & Palpation: soft, non-distended, no tenderness, guarding & rebound Assessment and Plan EGD dilation for dysphagia and possible bx
--- NOTE | 2017-09-14 13:34 | Discharge Instructions ---
Endoscopy Patient Instructions Date / Procedure(s) Performed Sep 14, 2017. EGD Allergy Information Coded Allergies: Latex1 -Allergic Contact Dermititis (Verified Allergy, Unknown, SWELLING AND RASH, 09/05/17) Adhesives (Verified Adverse Reaction, Unknown, SWELLING AND RASH, 09/05/17) Discharge Date / Findings Sep 14, 2017. Schatzki ring- HH;;dilated to 60 Fr Medication Instructions Stopped Medication(s): stopped Xarelto on Sunday Restart Stopped Medication(s): Reported Home Medications Medications Dose Route/Sig Max Daily Dose Days Date Category Zyloprim (Allopurinol) 300 Mg Tab 300 Mg PO QAM 09/05/17 Reported Tiazac (Diltiazem HCl) 120 Mg Capcr 120 Mg PO QAM 09/05/17 Reported Klonopin (Clonazepam) 0.5 Mg Tab 1 Mg PO HS 09/05/17 Reported Xarelto (Rivaroxaban) 20 Mg Tab 20 Mg PO QPM 07/27/16 Reported Lopressor (Metoprolol Tartrate) 25 Mg Tab 25 Mg PO BID 07/27/16 Reported Nexium (Esomeprazole Magnesium) 40 Mg Capcr 40 Mg PO QAM 09/10/14 Reported Lipitor (Atorvastatin Calcium) 20 Mg Tab 20 Mg PO QAM 09/10/14 Reported Preservision Arareds 1 Cap PO BID 10/04/09 Reported Reported Home Medications Medications Dose Route/Sig Max Daily Dose Days Date Category Zyloprim (Allopurinol) 300 Mg Tab 300 Mg PO QAM 09/05/17 Reported Tiazac (Diltiazem HCl) 120 Mg Capcr 120 Mg PO QAM 09/05/17 Reported Klonopin (Clonazepam) 0.5 Mg Tab 1 Mg PO HS 09/05/17 Reported Xarelto (Rivaroxaban) 20 Mg Tab 20 Mg PO QPM 07/27/16 Reported Lopressor (Metoprolol Tartrate) 25 Mg Tab 25 Mg PO BID 07/27/16 Reported Nexium (Esomeprazole Magnesium) 40 Mg Capcr 40 Mg PO QAM 09/10/14 Reported Lipitor (Atorvastatin Calcium) 20 Mg Tab 20 Mg PO QAM 09/10/14 Reported Preservision Arareds 1 Cap PO BID 10/04/09 Reported Resume Xarelto tomorrow (Sat) Reported Home Medications Medications Dose Route/Sig Max Daily Dose Days Date Category Zyloprim (Allopurinol) 300 Mg Tab 300 Mg PO QAM 09/05/17 Reported Tiazac (Diltiazem HCl) 120 Mg Capcr 120 Mg PO QAM 09/05/17 Reported Klonopin (Clonazepam) 0.5 Mg Tab 1 Mg PO HS 09/05/17 Reported Xarelto (Rivaroxaban) 20 Mg Tab 20 Mg PO QPM 07/27/16 Reported Lopressor (Metoprolol Tartrate) 25 Mg Tab 25 Mg PO BID 07/27/16 Reported Nexium (Esomeprazole Magnesium) 40 Mg Capcr 40 Mg PO QAM 09/10/14 Reported Lipitor (Atorvastatin Calcium) 20 Mg Tab 20 Mg PO QAM 09/10/14 Reported Preservision Arareds 1 Cap PO BID 10/04/09 Reported Resume Xarelto tomorrow (Sat) Provider Instructions Activity Restrictions - No exercising or heavy lifting for 24 hours. - Do not drink alcohol the day of the procedure. - Do not drive a car or operate machinery until the day after the procedure. - Do not make any important decisions or sign important papers in 24 hours after the procedure. Following Day: - Return to full activity which may include returning to work/school. Diet Start your diet with liquids and light foods (jello, soup, juice, toast). Then eat your usual diet if not nauseated. Treatment For Common After Affects For mild abdominal pain, bloating, or excessive gas: - Rest - Eat lightly - Lie on right side Follow-Up Information Follow-up with Dr. Combs as scheduled Anesthesia Information What You Should Know You have had a procedure that required some medicine to reduce anxiety and discomfort. This treatment is called moderate sedation. After receiving the treatment, you may be sleepy, but you will be able to breathe on your own. The effects of the treatment may last for several hours. Follow these instructions along with Activity/Diet recommendations noted above: * Do NOT do anything where dizziness or clumsiness would be dangerous. * Rest quietly at home today, then you can be up and about tomorrow. * Have a responsible person stay with you the rest of today. * You may have had an I.V. today. If so, you may take the dressing off later today. Recommendations Call your doctor if: * Trouble breathing * Continuous vomiting for more than 24 hours * Temperature above 101 degrees * Severe abdominal pain or bloating * Pain not relieved by pain medicine ordered * There is increased drainage or redness from any incision * A large amount of rectal bleeding greater than 2-3 tablespoons. (If you had a polyp/s removed or have hemorrhoids, a small amount of blood - from the rectum is to be expected.) * You have any unanswered questions or concerns. IN THE EVENT OF A SERIOUS EMERGENCY, GO TO THE NEAREST EMERGENCY ROOM Your discharge instructions were prepared by provider Rosales Riddle. Patient Instructions Signature Page Qamar Merino Patient (or Guardian) Signature/Date: I have read and understand the instructions given to me by my caregivers. Caregiver/RN/Doctor Signature/Date: The above-named patient and/or guardian has received patient instructions on this date. + Original Patient Signature Page (only) stays with chart. Please make copy for patient.
--- NOTE | 2017-09-14 13:45 | GI REPORT ---
Procedure Date: 09/14/2017 1:12 PM Procedure: Upper GI endoscopy Indications: Esophageal dysphagia Medicines: Propofol per Anesthesia Complications: No immediate complications. Estimated blood loss: None. Estimated Blood Loss: Estimated blood loss: none. Procedure: Pre-Anesthesia Assessment: - Prior to the procedure, a History and Physical was performed, and patient medications and allergies were reviewed. The patient's tolerance of previous anesthesia was also reviewed. The risks and benefits of the procedure and the sedation options and risks were discussed with the patient. All questions were answered, and informed consent was obtained. Prior Anticoagulants: The patient has taken no previous anticoagulant or antiplatelet agents. ASA Grade Assessment: III - A patient with severe systemic disease. After reviewing the risks and benefits, the patient was deemed in satisfactory condition to undergo the procedure. After obtaining informed consent, the endoscope was passed under direct vision. Throughout the procedure, the patient's blood pressure, pulse, and oxygen saturations were monitored continuously. The Scope was introduced through the mouth, and advanced to the second part of duodenum. The upper GI endoscopy was accomplished without difficulty. The patient tolerated the procedure well. Findings: The examined esophagus was normal. A small hiatal hernia was found. The proximal extent of the gastric folds (end of tubular esophagus) was 38 cm from the incisors. The hiatal narrowing was 41 cm from the incisors. The Z-line was 38 cm from the incisors. A low-grade of narrowing, non-obstructing and mild Schatzki ring (acquired) was found at the gastroesophageal junction. A guidewire was placed and the scope was withdrawn. Dilation was performed with a Savary dilator with no resistance at 60 Fr. The dilation site was examined following endoscope reinsertion and showed moderate improvement in luminal narrowing. The entire examined stomach was normal. The examined duodenum was normal. The cardia and gastric fundus were normal on retroflexion. Retained gastric contents are not identified on this exam. Impression: - Normal esophagus. - Small hiatal hernia. - Low-grade of narrowing, non-obstructing and mild Schatzki ring. Dilated. - Normal stomach. - Normal examined duodenum. - No specimens collected. Recommendation: - Discharge patient to home (ambulatory). - Advance diet as tolerated. - Continue present medications. - Return to GI clinic as previously scheduled. MD Rosales Jasso MD 09/14/2017 1:45:10 PM This report has been signed electronically. Note Initiated On: 09/14/2017 1:12 PM I attest to the content of the Intraoperative Record and orders documented therein, exceptions below
[2017-09-14 14:09] VITALS: BP 139/65; PULSE 45; O2SAT 95
--- NOTE | 2017-09-14 14:12 | Anesthesiology Progress Note ---
Anesthesia Post Op Note Date & Time Sep 14, 2017 at 14:12 Vital Signs Pain Intensity: 0 Vital Signs Past 12 Hours Date Time Temp Pulse Resp B/P (MAP) Pulse Ox O2 Delivery O2 Flow Rate FiO2 09/14/17 14:09 45 20 139/65 (89) 95 Room Air 09/14/17 13:55 45 20 128/67 (87) 95 Room Air 09/14/17 13:41 36.2 45 20 117/57 (77) 95 Room Air 09/14/17 12:38 36.2 50 20 156/66 (96) 96 Room Air Notes Mental Status: alert / awake / arousable, participated in evaluation Pt Amnestic to Procedure: Yes Nausea / Vomiting: adequately controlled Pain: adequately controlled Airway Patency, RR, SpO2: stable & adequate BP & HR: stable & adequate Hydration State: stable & adequate Anesthetic Complications: no major complications apparent
== END | disposition home or self-care (01) ==
LOC: C.GI 12:12
PROVIDERS: ATTEND Internal Medicine Gastroenterology
DX: K22.2 Esophageal obstruction (principal); K44.9 Diaphragmatic hernia without obstruction or gangrene; F03.90 Unspecified dementia, unspecified severity, without behavioral disturbance, psychotic disturbance, mood disturbance, and anxiety; J44.9 Chronic obstructive pulmonary disease, unspecified; I48.91 Unspecified atrial fibrillation; K21.9 Gastro-esophageal reflux disease without esophagitis; E78.00 Pure hypercholesterolemia, unspecified; I10 Essential (primary) hypertension; I25.2 Old myocardial infarction; Z91.040 Latex allergy status

== ENCOUNTER 2019-01-26 18:59 | Inpatient (IN) ==
[2019-01-26] MEDS ORDERED: SODIUM CHLORIDE 0.9% 250 ML IV ONE (19:20)
[2019-01-26 19:52] LABS: Basophils # (auto) 0.04 K/uL (0-0.2); Basophils % (auto) 0.3 %; Eosinophils # (auto) 0.07 K/uL (0-0.5); Eosinophils % (auto) 0.5 %; Hematocrit (blood only) 50.8 % (42-52); Hemoglobin 17.5 g/dL (14.0-18.0); Immature Granulocytes # (auto) 0.06 K/uL (0.00-0.02); Immature Granulocytes % (auto) 0.4 %; Lymphocytes # (auto) 1.05 K/uL (1.2-3.4); Lymphocytes % (auto) 7.1 %; Mean Corpuscular Hgb Conc 34.4 g/dL (32-36); Mean Corpuscular Volume 86.8 fL (80-100); Mean Platelet Volume 11.3 fL (7.4-10.4); Monocytes # (auto) 0.83 K/uL (0.11-0.59); Monocytes % (auto) 5.6 %; Neutrophils # (auto) 12.84 K/uL (1.4-6.5); Neutrophils % (auto) 86.1 %; Platelet Count 107 K/uL (130-400); RDW Coefficient of Variation 15.9 % (11.5-14.5); RDW Standard Deviation 50.9 fL (36.4-46.3); Red Blood Count 5.85 M/uL (4.7-6.1); White Blood Count 14.89 K/uL (4.8-10.8)
--- NOTE | 2019-01-26 19:53 | XRay Report ---
XR chest 1V portable HISTORY: Shortness of breath. COMPARISON: Chest 12/24/2018. FINDINGS: Chronic left basilar densities favor scarring or atelectasis. No new focal lung consolidati ons. No evidence for pulmonary edema. No pneumothorax. The heart remains mildly enlarged. IMPRESSION: No change in the chronic left basilar densities which favor scarring or atelectasis. No new focal benjamin g consolidations. Electronically signed by: Hany Medina M.D. 01/26/2019 7:52 PM
[2019-01-26 20:10] LABS: Albumin Level 2.7 gm/dl (3.4-5.0); BUN Creatinine Ratio 15.5 (10-20); Calcium 8.8 mg/dl (8.5-10.1); Creatinine Clr Calc Pharmacy 62.9 ml/min; Est GFR (African American) 92.6; Est GFR (Non-African American) 79.9; Potassium 4.4 mmol/L (3.5-5.1)
[2019-01-26 20:20] LABS: Albumin Globulin Ratio 0.6 (0.9-2); Bilirubin,Total 1.3 mg/dl (0.2-1); Globulin 4.2 gm/dl (2.5-4.0); Total Protein 6.9 gm/dl (6.4-8.2); Troponin I 0.024 ng/ml (0-0.045)
--- NOTE | 2019-01-26 20:37 | CT Scan Report ---
ABDOMEN AND PELVIS CT WITHOUT CONTRAST CT DOSE: 456.48 mGy.cm HISTORY: Lower abdominal pain. TECHNIQUE: Multiaxial CT images of the abdomen and pelvis were performed without contrast. A dose lo wering technique was utilized adhering to the principles of ALARA. COMPARISON STUDY: Abdomen and pelvis CT 07/27/2016. FINDINGS: Bibasilar linear densities favor subsegmental atelectasis. There is a trace left pleural ef fusion. Small hiatus hernia. No pneumoperitoneum. No pneumatosis. No suspicious lytic are blastic oss eous lesions. Tiny fat-containing umbilical hernia. Small fat-containing right inguinal hernia. 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 The liver, spleen, adrena l glands, and pancreas are unremarkable. The gallbladder is mildly distended. No definite gallbladder wall thickening. No renal or ureteral stones. Mild bilateral perinephric edema. This is likely chron ic. A few small bilateral peripelvic renal cysts. Mild bladder wall thickening with associated fat st randing. This likely represents a cystitis. The prostate gland is mildly enlarged. Stable bilobed cys tic lesion within the left deep pelvis. This results in mild mass effect along the bladder. This jose alberto ures approximately 9 cm. Suboptimal evaluation for bowel pathology due to the lack of intravenous and oral contrast. However, there is no evidence for bowel obstruction. Colonic diverticulosis. No evide nce for diverticulitis. Focal narrowing within the proximal transverse colon with questionable wall t hickening. This is best seen on image 172 and measures 2 cm in length. This could be due to focal spa sm or possibly a colonic lesion. The no retroperitoneal lymphadenopathy. Mildly ectatic abdominal aor ta. IMPRESSION: 1. Bladder wall thickening with associated fat stranding. This likely represents a cystitis. Recommen d correlation with urinalysis. 2. Focal narrowing within the proximal transverse colon with questionable wall thickening. This measu res 2 cm in length and could be due to focal spasm or possibly a colonic lesion. 3. Mildly distended gallbladder. No gallbladder wall thickening. 4. Colonic diverticulosis. No evidence for diverticulitis. 5. Trace left pleural effusion. 6. Stable bilobed cystic lesion within the left deep pelvis measuring approximately 9 cm. 7. Additional findings as described above. Electronically signed by: Hany Medina M.D. 01/26/2019 8:35 PM
[2019-01-26] MEDS ORDERED: cefTRIAXone SODIUM 2,000 MG in DEXTROSE 5% 50 ML IV STA (20:52)
[2019-01-26 21:22] LABS: Appearance Urine Clear (Clear); Bilirubin Urine Negative (Negative); Blood Urine 1+ (Negative); Color Urine Yellow; Glucose Urine UA Negative (Negative); Ketones Urine Negative (Negative); Leukocyte Esterase Urine 1+ (Negative); Nitrite Urine Positive (Negative); Specific Gravity Urine 1.015 (1.000-1.030); Urobilinogen Urine Positive (Negative); pH Urine 7.5 (4.5-7.5)
[2019-01-26 21:36] LABS: Protein Urine Negative (Negative)
[2019-01-26 21:38] LABS: Epithelial Cell Urine 0-5 /lpf (0-5)
[2019-01-26 21:39] LABS: Bacteria Urine 4+ (Negative); WBC Urine >30 /hpf (0-5)
--- NOTE | 2019-01-26 21:39 | Emergency Department Note ---
Entered by Amor Espino acting as a scribe for History of Present Illness General Chief complaint: Weakness Source: patient, family and EMS Limitations: other (Dementia) History of Present Illness Provider complaint: Weakness Onset (ago): day(s) (Couple of days) Location: abdomen Radiation: non-radiation Pain Consistency: + constant Relieved By: + none Exacerbated By: + none Associated symptoms: + shortness of breath and + other (Positive abdominal pain; Positive diarrhea); no chest pain, no fever/chills and no nausea/vomiting The patient is an 88 year old male who presents to the Emergency Room with complaints of constant generalized weakness that started a couple days ago, per EMS. Per his family, the patient is typically able to do daily activities by himself but recently he has not been able to. EMS also reported that the patient has had generalized pain especially in his lower abdomen. Currently, the patient is also complaining of left lower quadrant pain. Per his family, he also has been more short of breath than he normally is at baseline. They also state that he has had some intermittent diarrhea. The patient denies any fevers, chest p ain, or vomiting. Per his family, the patient just finished an antibiotic course for pneumonia. HPI is limited secondary to patient's dementia. Home Medications Home Medications Medication Instructions Recorded Confirmed Type albuterol sulfate 2 puff INHALATION Q4 PRN 01/26/19 01/26/19 History allopurinol [Zyloprim] 300 mg PO QAM 01/26/19 01/26/19 History atorvastatin 20 mg PO DAILY 01/26/19 01/26/19 History clonazepam [Klonopin] 1 mg PO HS 01/26/19 01/26/19 History diltiazem HCl [Tiazac] 120 mg PO QAM 01/26/19 01/26/19 History esomeprazole magnesium [Nexium] 40 mg PO DAILY 01/26/19 01/26/19 History metoprolol tartrate 25 mg PO BID 01/26/19 01/26/19 History rivaroxaban [Xarelto] 20 mg PO PM 01/26/19 01/26/19 History vitamins A,C,[id number] 1 tab PO BID 01/26/19 01/26/19 History [PreserVision AREDS] Allergies Allergy/AdvReac Type Severity Reaction Status Date / Time latex Allergy Unknown SWELLING Verified 01/26/19 19:36 AND RASH adhesive AdvReac Unknown SWELLING Verified 01/26/19 19:36 AND RASH Past Med/Surg History Medical History Dementia Family History Other Family history non-contributory Social History Preferred Language: Sami Feels Safe at Home: Yes Smoking Status: Former smoker Review of Systems See HPI for pertinent positives & negatives. Other (Limited secondary to patient's dementia.) Physical Exam Vital Signs Vital Signs - 24 hr 01/26/19 19:02 01/26/19 19:07 01/26/19 19:09 Temperature 37.6 C H Temperature Source Oral Sepsis Recent Fever Within 48 Hours Yes Sepsis New/Unexplained Change in Mental Status No Sepsis Action Taken by Nursing No Action Required Pulse Rate 82 90 82 Pulse Rate from SpO2 Sensor 83 82 Respiratory Rate 21 18 18 Respiratory Effort / Characteristics Non-Labored Spontaneous Respiratory Depth Normal Blood Pressure 181/87 H 181/87 H Blood Pressure Mean 118 118 Pulse Oximetry 94 95 94 Oxygen Delivery Method Room Air 01/26/19 19:26 01/26/19 19:30 01/26/19 19:36 Temperature Temperature Source Sepsis Recent Fever Within 48 Hours Sepsis New/Unexplained Change in Mental Status Sepsis Action Taken by Nursing Pulse Rate 85 85 Pulse Rate from SpO2 Sensor 85 86 Respiratory Rate 17 26 H Respiratory Effort / Characteristics Respiratory Depth Blood Pressure 151/88 H Blood Pressure Mean 109 Pulse Oximetry 94 93 Oxygen Delivery Method Room Air 01/26/19 20:00 01/26/19 20:01 01/26/19 20:30 Temperature Temperature Source Sepsis Recent Fever Within 48 Hours Sepsis New/Unexplained Change in Mental Status Sepsis Action Taken by Nursing Pulse Rate 78 81 79 Pulse Rate from SpO2 Sensor 78 Respiratory Rate 18 16 23 Respiratory Effort / Characteristics Respiratory Depth Blood Pressure 161/100 H Blood Pressure Mean 120 Pulse Oximetry 91 Oxygen Delivery Method 01/26/19 20:33 Temperature Temperature Source Sepsis Recent Fever Within 48 Hours Sepsis New/Unexplained Change in Mental Status Sepsis Action Taken by Nursing Pulse Rate 82 Pulse Rate from SpO2 Sensor Respiratory Rate 23 Respiratory Effort / Characteristics Respiratory Depth Blood Pressure 161/86 H Blood Pressure Mean 111 Pulse Oximetry Oxygen Delivery Method Constitutional: Vital signs reviewed. Eyes: Pupils are equal round reactive to light. Conjunctiva are noninjected. ENT: Pharynx is clear without erythema or exudate. Mucous membranes are dry. Neck supple without meningeal signs. Respiratory: Clear to auscultation bilaterally. Breath sounds are equal bilaterally. Cardiovascular: Regular rate and rhythm. No rubs or gallops. GI: Soft, nondistended and nontender. Bowel sounds are present. Musculoskeletal: No peripheral edema. No lower extremity tenderness. Integumentary: No cyanosis. Neurological: The patient is awake and alert. No focal deficits. Psychiatric: Unable to assess. Course 1912: Past medical records reviewed. The patient was evaluated in room C01B, and a complete history and physical examination were performed. 2026: I spoke to the patient's and she informed me that the patient just finished amoxicillin and Prednisone. I also updated the patient and his family on test results. 2054: I spoke to Dr. Seamus Gold [facility] Hospitalist about the patient's case and she is going to accept him for further evaluation. Consultations Consultation #1: I spoke to Dr. Seamus Gold [facility] Hospitalist about the patient's case and she is going to accept him for further evaluation. Time: 20:55 Administered Medications Discontinued Medications Sodium Chloride (Nss) 250 mls @ 999 mls/hr IV .Q16M ONE Stop: 01/26/19 19:35 Last Infusion: 01/26/19 20:31 Dose: 0 mls/hr Documented by: [id number] Admin: 01/26/19 19:50 Dose: 999 mls/hr Documented by: [id number] Ceftriaxone Sodium 2,000 mg/ (Dextrose) 70 mls @ 100 mls/hr IV NOW STA Stop: 01/26/19 21:33 Last Admin: 01/26/19 21:20 Dose: 100 mls/hr Documented by: [id number] Medical Decision Making Differential Diagnosis Differential Diagnosis includes: Sepsis, pneumonia, UTI, C. Diff, colitis, anemia, and cardiac, amongst others. Medical Records Attestation: I reviewed the patient's medical records. I did perform a limited focused review of portions of the patient's old chart on the electronic medical record. The patient has had no recent pertinent visits to this hospital. Home Medications Current Medication List: was personally reviewed by me Laboratory Data Attestation: I reviewed the patient's lab results. Result diagrams: 01/26/19 19:41 01/26/19 19:41 Lab Results 01/26/19 01/26/19 01/26/19 Range/Units 19:41 19:41 19:43 WBC 14.89 H (4.8-10.8) K/uL RBC 5.85 (4.7-6.1) M/uL Hgb 17.5 (14.0-18.0) g/dL Hct 50.8 (42-52) % MCV 86.8 (80-100) fL MCH 29.9 (25-34) pg MCHC 34.4 (32-36) g/dL RDW Std Deviation 50.9 H (36.4-46.3) fL RDW Coeff of Chantelle 15.9 H (11.5-14.5) % Plt Count 107 L (130-400) K/uL MPV 11.3 H (7.4-10.4) fL Immature Gran % (Auto) 0.4 % Neut % (Auto) 86.1 % Lymph % (Auto) 7.1 % [place] % (Auto) 5.6 % Eos % (Auto) 0.5 % Baso % (Auto) 0.3 % Immature Gran # (Auto) 0.06 H (0.00-0.02) K/uL Neut # (Auto) 12.84 H (1.4-6.5) K/uL Lymph # (Auto) 1.05 L (1.2-3.4) K/uL [place] # (Auto) 0.83 H (0.11-0.59) K/uL Eos # (Auto) 0.07 (0-0.5) K/uL Baso # (Auto) 0.04 (0-0.2) K/uL Sodium 139 (136-145) mmol/L Potassium 4.4 (3.5-5.1) mmol/L Chloride 104 (98-107) mmol/L Carbon Dioxide 29 (21-32) mmol/L Anion Gap 6.0 (3-11) BUN 13 (7-18) mg/dl Creatinine 0.81 (0.6-1.4) mg/dl Est Cr Clr Drug Dosing 62.9 ml/min Est GFR ( Amer) 92.6 Est GFR (Non-Af Amer) 79.9 BUN/Creatinine Ratio 15.5 (10-20) Glucose 132 H (70-99) mg/dl POC Lactic Acid Miki 1.91 H (0.90-1.70) mmol/L Calcium 8.8 (8.5-10.1) mg/dl Total Bilirubin 1.3 H (0.2-1) mg/dl AST 14 L (15-37) U/L ALT 18 (12-78) U/L Alkaline Phosphatase 66 (45-117) U/L Troponin I 0.024 (0-0.045) ng/ml Total Protein 6.9 (6.4-8.2) gm/dl Albumin 2.7 L (3.4-5.0) gm/dl Globulin 4.2 H (2.5-4.0) gm/dl Albumin/Globulin Ratio 0.6 L (0.9-2) TSH 2.180 (0.300-4.500) uIu/ml Urine Color Urine Appearance (Clear) Urine pH (4.5-7.5) Ur Specific Bude (1.000-1.030) Urine Protein (Negative) Urine Glucose (UA) (Negative) Urine Ketones (Negative) Urine Blood (Negative) Urine Nitrite (Negative) Urine Bilirubin (Negative) Urine Urobilinogen (Negative) Ur Leukocyte Esterase (Negative) 01/26/19 Range/Units 21:00 WBC (4.8-10.8) K/uL RBC (4.7-6.1) M/uL Hgb (14.0-18.0) g/dL Hct (42-52) % MCV (80-100) fL MCH (25-34) pg MCHC (32-36) g/dL RDW Std Deviation (36.4-46.3) fL RDW Coeff of Chantelle (11.5-14.5) % Plt Count (130-400) K/uL MPV (7.4-10.4) fL Immature Gran % (Auto) % Neut % (Auto) % Lymph % (Auto) % [place] % (Auto) % Eos % (Auto) % Baso % (Auto) % Immature Gran # (Auto) (0.00-0.02) K/uL Neut # (Auto) (1.4-6.5) K/uL Lymph # (Auto) (1.2-3.4) K/uL [place] # (Auto) (0.11-0.59) K/uL Eos # (Auto) (0-0.5) K/uL Baso # (Auto) (0-0.2) K/uL Sodium (136-145) mmol/L Potassium (3.5-5.1) mmol/L Chloride (98-107) mmol/L Carbon Dioxide (21-32) mmol/L Anion Gap (3-11) BUN (7-18) mg/dl Creatinine (0.6-1.4) mg/dl Est Cr Clr Drug Dosing ml/min Est GFR ( Amer) Est GFR (Non-Af Amer) BUN/Creatinine Ratio (10-20) Glucose (70-99) mg/dl POC Lactic Acid Miki (0.90-1.70) mmol/L Calcium (8.5-10.1) mg/dl Total Bilirubin (0.2-1) mg/dl AST (15-37) U/L ALT (12-78) U/L Alkaline Phosphatase (45-117) U/L Troponin I (0-0.045) ng/ml Total Protein (6.4-8.2) gm/dl Albumin (3.4-5.0) gm/dl Globulin (2.5-4.0) gm/dl Albumin/Globulin Ratio (0.9-2) TSH (0.300-4.500) uIu/ml Urine Color Yellow Urine Appearance Clear (Clear) Urine pH 7.5 (4.5-7.5) Ur Specific Bude 1.015 (1.000-1.030) Urine Protein Negative (Negative) Urine Glucose (UA) Negative (Negative) Urine Ketones Negative (Negative) Urine Blood 1+ H (Negative) Urine Nitrite Positive A (Negative) Urine Bilirubin Negative (Negative) Urine Urobilinogen Positive H (Negative) Ur Leukocyte Esterase 1+ H (Negative) Imaging Data Radiologist's Impression: Radiology results as stated below per my review and the radiologist's interpretation: XR chest 1V portable HISTORY: Shortness of breath. COMPARISON: Chest 12/24/2018. FINDINGS: Chronic left basilar densities favor scarring or atelectasis. No new focal lung consolidations. No evidence for pulmonary edema. No pneumothorax. The heart remains mildly enlarged. IMPRESSION: No change in the chronic left basilar densities which favor scarring or atelectasis. No new focal lung consolidations. Electronically signed by: Hany Medina M.D. 01/26/2019 7:52 PM ABDOMEN AND PELVIS CT WITHOUT CONTRAST CT DOSE: 456.48 mGy.cm HISTORY: Lower abdominal pain. TECHNIQUE: Multiaxial CT images of the abdomen and pelvis were performed without contrast. A dose lowering technique was utilized adhering to the principles of ALARA. COMPARISON STUDY: Abdomen and pelvis CT 07/27/2016. FINDINGS: Bibasilar linear densities favor subsegmental atelectasis. There is a trace left pleural effusion. Small hiatus hernia. No pneumoperitoneum. No pneumatosis. No suspicious lytic are blastic osseous lesions. Tiny fat-cont aining umbilical hernia. Small fat-containing right inguinal hernia. 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 The liver, spleen, adrenal glands, and pancreas are unremarkable. The gallbladder is mildly distended. No definite gallbladder wall thickening. No renal or ureteral stones. Mild bilateral perinephric edema. This is likely chronic. A few small bilateral peripelvic renal cysts. Mild bladder wall thickening with associated fat stranding. This likely represents a cystitis. The prostate gland is mildly enlarged. Stable bilobed cystic lesion within the left deep pelvis. This results in mild mass effect along the bladder. This measures approximately 9 cm. Suboptimal evaluation for bowel pathology due to the lack of intravenous and oral contrast. However, there is no evidence for bowel obstruction. Colonic diverticulosis. No evidence for diverticulitis. Focal narrowing within the proximal transverse colon with questionable wall thickening. This is best seen on image 172 and measures 2 cm in length. This could be due to focal spasm or possibly a colonic lesion. The no retroperitoneal lymphadenopathy. Mildly ectatic abdominal aorta. IMPRESSION: 1. Bladder wall thickening with associated fat stranding. This likely represents a cystitis. Recommend correlation with urinalysis. 2. Focal narrowing within the proximal transverse colon with questionable wall thickening. This measures 2 cm in length and could be due to focal spasm or possibly a colonic lesion. 3. Mildly distended gallbladder. No gallbladder wall thickening. 4. Colonic diverticulosis. No evidence for diverticulitis. 5. Trace left pleural effusion. 6. Stable bilobed cystic lesion within the left deep pelvis measuring approximately 9 cm. 7. Additional findings as described above. Electronically signed by: Hany Medina M.D. 01/26/2019 8:35 PM ECG Data Attestation: I personally reviewed and interpreted this ECG as follows: Indication: weakness Rate (beats per minute): 81 Rhythm: normal sinus Findings: + Q waves (Inferior) and + RBBB Comparison ECG Date: from (07/27/16) Change: no significant change Blood Pressure Blood Pressure Findings: Elevated blood pressure Blood Pressure Disposition: Referred to patients primary care provider MDM Narrative I did evaluate the patient as noted above. The patient is presenting with generalized weakness and fever. I did obtain history mostly from the family as he has dementia. He does offer that he has lower abdominal pain. IV access was established. The patient was placed on a continuous monitoring coordinator. I did order and personally review the patient's 12-lead EKG as described above. He has an old right bundle branch block. No acute ischemia. I did order and personally reviewed the images of the patient's chest x-ray as described above. He has a persistent infiltrate on the left lower base but the radiologist felt this was likely chronic scarring or atelectasis rather than pneumonia. I did order a urine analysis. He does have an obvious infection. Blood cultures were obtained. I did order and review the patient's blood work as noted in the electronic medical record. His white count is elevated. Lactic acid is slightly elevated as well. I did order a CT of the abdomen and pelvis. I did review the images myself as well as the radiology report as described above. He has what appears to be cystitis. I did discuss the test results with the patient and his family. He will be hospitalized for further treatment given his severe weakness. I did discuss case with the hospitalist and case briefer. Impression & Plan Acute UTI, Generalized weakness Discharge Plan Visit Data Chief Complaint: Weakness ED Provider: Jordan Kessler Discharge Problem: Acute UTI, Generalized weakness Patient Disposition: Being Evaluated by Hospitalist Forms Stand Alone Forms: My [facility] [address] Prescriptions Prescriptions: No Action atorvastatin 20 mg Tablet 20 mg PO DAILY RF: 0 clonazepam [Klonopin] 0.5 mg tablet 1 mg PO HS RF: 0 diltiazem HCl [Tiazac] 120 mg capsule,extended release 24 hr 120 mg PO QAM RF: 0 esomeprazole magnesium [Nexium] 40 mg Capsule,Delayed Release(Dr/Ec) 40 mg PO DAILY RF: 0 allopurinol [Zyloprim] 300 mg tablet 300 mg PO QAM RF: 0 albuterol sulfate 90 mcg/actuation HFA aerosol inhaler 2 puff inhalation Q4 PRN (Reason: Shortness Of Breath Or Wheezing) RF: 0 metoprolol tartrate 25 mg Tablet 25 mg PO BID RF: 0 PreserVision AREDS [id number] Tablet 1 tab PO BID RF: 0 Xarelto 20 mg Tablet 20 mg PO PM RF: 0 Referrals Referrals: Saqib Combs MD [Primary Care Provider] - The scribe's documentation has been prepared under my direction and personally reviewed by me in its entirety. I confirm that the note above accurately reflects all work, treatment, procedures, and medical decision making performed by me.
--- NOTE | 2019-01-26 23:03 | History & Physical Report ---
Date of Service January 26, 2019 Assessment & Plan (1) Generalized weakness: 88-year-old male was admitted on 26 January 2019 for weakness and likely cystitis. Weakness, lower abdominal pain, cystitis: Per daughter, never quite recovered from pneumonia about 3 weeks ago. Acute increased weakness in past 24 hours. By report, multiple UTIs in the past year. Possibly previously diagnosed with prostate cancer. Presently non-tender to abdominal palpation. - In ED, temp 37.6, not tachycardic, mildly tachypneic, hypertensive, with SpO2 91% on room air. WBC 14. POC lactate 1.91. TSH normal. Troponin 0.024. EKG NSR 81 with RBBB. Blood cultures sent. pCXR noted no change in chronic left basilar densities and no new focal lung consolidations. CT a/p without contrast noted likely cystitis (see other findings below). UA positive for WBCs and less so RBCs. Urine culture sent. - In ED, treated with NS IVF as well as ceftriaxone. - Will continue IVF and ceftriaxone. Repeat lactate in a.m. Of note, last three UCx were negative back to 2018, so this may be more of a chronic cystitis instead of an infectious issue. The noted stable pelvic cystic lesion may be bladder-irritating as well, thus benefit from outpatient evaluation. Loose stools: Ongoing since starting antibiotics about three weeks ago. Denies overt watery or bloody stools. - ED ordered C. difficile testing. Thrombocytopenia: Admit platelets 107. No reports or acute evidence of bleeding. Incidental CT a/p findings: - Focal narrowing of the proximal transverse colon with questionable wall thickening concerning for spasm vs colonic lesion. - Colonic diverticulosis without evidence of diverticulitis. - Stable pelvic cystic lesion measuring 9 cm. 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 - Fat-containing umbilical hernia and right inguinal hernia. Ongoing medical issues: - Hypertension, hyperlipidemia, CAD s/p stent 2004: Continue home metoprolol, diltiazem, atorvastatin. - Dysphasia: Underwent EGD in November 2017. Mild Schatzki's ring seen. Has had esophageal dilatation in the past. Continue home Nexium. - Paroxysmal atrial fibrillation and SVT: Continue home metoprolol and Xarelto. - Dementia: At baseline, patient knows his name and date of . - Gout: Continue home allopurinol. 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 Code status: Discussed with patient's daughter at bedside. She called her mother (patient's ) to confirm. Patient WOULD wish to have chest compressions but would NOT wish to be intubated. Diet: Heart healthy. DVT prophy: Xarelto. PT/OT: Ordered. Disbo: Admit to [facility]. - Consulted case management. Daughter had multiple questions about potential short-term placement after this hospitalization. (2) Abdominal pain: (3) Cystitis: (4) Loose stools: (5) Thrombocytopenia: (6) Diverticulosis: (7) Cystic lesion of pelvic viscera: (8) Iliac artery aneurysm, left: (9) Right inguinal hernia: (10) Umbilical hernia: (11) Hypertension: (12) Hyperlipidemia: (13) CAD (coronary artery disease): (14) Dysphagia: (15) Schatzki's ring: (16) Paroxysmal atrial fibrillation: (17) History of PSVT (paroxysmal supraventricular tachycardia): (18) Dementia: (19) Gout: (20) History of tuberculosis: History of Present Illness Primary Care Provider: Saqib Combs MD 88-year-old male presents with his daughter with concerns about generalized weakness that worsened acutely in the past 24 hours. Patient has baseline dementia and per daughter generally knows his name and date of , though he otherwise will not answer questions consistently or necessarily correctly. The below history is based on the daughter's account. Daughter states that the patient had pneumonia about 3 weeks ago. She says he is never quite been himself since then. He completed his last round of antibiotics (amoxicillin) this past Jul. He has been noted to be more fatigued during this time but it acutely worsened in the past 24 hours such that he could get out of bed today. No known fevers or vomiting. He has had loose, non-watery, non-bloody stools ever since starting the amoxicillin. No other noted acute issues at home. Of note, patient has had perhaps 5-6 UTIs in the past 12 months. She says he generally does not drink enough throughout the day. Apparently he never complains of urinary symptoms. - Past medical history includes hypertension, hyperlipidemia, CAD status post stent 2003, dysphasia, paroxysmal atrial fibrillation, SVT, dementia, gout, history of remote tuberculosis, pneumonia, multiple UTIs, T12 dermatome zoster. - Past surgical history includes left inguinal repair. - Social history includes quit smoking in 1967's with prior [id number] history. Denies history of alcohol use. Lives at home with his as primary caregiver, although patient's two daughters are very close nearby. Allergies Allergy/AdvReac Type Severity Reaction Status Date / Time latex Allergy Unknown SWELLING Verified 01/26/19 19:36 AND RASH adhesive AdvReac Unknown SWELLING Verified 01/26/19 19:36 AND RASH Home Medications Home Medications Medication Instructions Recorded Confirmed Type albuterol sulfate 2 puff INHALATION Q4 PRN 01/26/19 01/26/19 History allopurinol [Zyloprim] 300 mg PO QAM 01/26/19 01/26/19 History atorvastatin 20 mg PO DAILY 01/26/19 01/26/19 History clonazepam [Klonopin] 1 mg PO HS 01/26/19 01/26/19 History diltiazem HCl [Tiazac] 120 mg PO QAM 01/26/19 01/26/19 History esomeprazole magnesium [Nexium] 40 mg PO DAILY 01/26/19 01/26/19 History metoprolol tartrate 25 mg PO BID 01/26/19 01/26/19 History rivaroxaban [Xarelto] 20 mg PO PM 01/26/19 01/26/19 History vitamins A,C,Q-[id number]-jdojij 1 tab PO BID 01/26/19 01/26/19 History [PreserVision AREDS] Past Med/Surg History Medical History Dementia Family History Other Family history non-contributory Social History Preferred Language: Urugu[place] Communication Ability: 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 Physical Exam Physical Exam: GENERAL: Awake, eyes open, will say his name when asked. No spontaneous speech. He does not appear in acute distress. HENT: Normocephalic, atraumatic. Oropharynx mildly dry. EYES: Normal conjunctiva. Sclera non-icteric. NECK: Inspection normal. CARDIAC: +S1S2 RRR, no murmurs. RESPIRATORY: Clear to auscultation. No wheezes or rales. Normal respiratory effort. GI: +BS, soft, non-distended. No tenderness to palpation. No rebound or guarding. EXTREMITIES: No pedal edema or calf tenderness. Moves both arms a bit to pull his covers on. NEURO: Will squeeze both hands and move his feet on command. Baseline dementia. Results & Data Vital Signs (Past 12 Hours) Vital Signs Temp Pulse Resp BP Pulse Ox 01/26/19 22:01 81 23 151/75 H 94 01/26/19 22:00 79 24 92 01/26/19 21:31 79 28 H 153/72 H 93 01/26/19 21:30 78 22 93 01/26/19 21:02 80 17 159/92 H 95 01/26/19 21:00 88 22 94 01/26/19 20:33 82 23 161/86 H 01/26/19 20:30 79 23 01/26/19 20:01 81 16 161/100 H 01/26/19 20:00 78 18 91 01/26/19 19:36 85 26 H 151/88 H 93 01/26/19 19:30 85 17 94 01/26/19 19:09 82 18 94 01/26/19 19:07 37.6 C H 90 18 181/87 H 95 01/26/19 19:02 82 21 181/87 H 94 Laboratory Results 01/26/19 01/26/19 01/26/19 Range/Units 21:00 19:43 19:41 WBC (4.8-10.8) K/uL RBC (4.7-6.1) M/uL Hgb (14.0-18.0) g/dL Hct (42-52) % MCV (80-100) fL MCH (25-34) pg MCHC (32-36) g/dL RDW Std Deviation (36.4-46.3) fL RDW Coeff of Chantelle (11.5-14.5) % Plt Count (130-400) K/uL MPV (7.4-10.4) fL Immature Gran % (Auto) % Neut % (Auto) % Lymph % (Auto) % Mitchell % (Auto) % Eos % (Auto) % Baso % (Auto) % Immature Gran # (Auto) (0.00-0.02) K/uL Neut # (Auto) (1.4-6.5) K/uL Lymph # (Auto) (1.2-3.4) K/uL Mitchell # (Auto) (0.11-0.59) K/uL Eos # (Auto) (0-0.5) K/uL Baso # (Auto) (0-0.2) K/uL Sodium 139 (136-145) mmol/L Potassium 4.4 (3.5-5.1) mmol/L Chloride 104 (98-107) mmol/L Carbon Dioxide 29 (21-32) mmol/L Anion Gap 6.0 (3-11) BUN 13 (7-18) mg/dl Creatinine 0.81 (0.6-1.4) mg/dl Est Cr Clr Drug Dosing 62.9 ml/min Est GFR ( Amer) 92.6 Est GFR (Non-Af Amer) 79.9 BUN/Creatinine Ratio 15.5 (10-20) Glucose 132 H (70-99) mg/dl POC Lactic Acid Miki 1.91 H (0.90-1.70) mmol/L Calcium 8.8 (8.5-10.1) mg/dl Total Bilirubin 1.3 H (0.2-1) mg/dl AST 14 L (15-37) U/L ALT 18 (12-78) U/L Alkaline Phosphatase 66 (45-117) U/L Troponin I 0.024 (0-0.045) ng/ml Total Protein 6.9 (6.4-8.2) gm/dl Albumin 2.7 L (3.4-5.0) gm/dl Globulin 4.2 H (2.5-4.0) gm/dl Albumin/Globulin Ratio 0.6 L (0.9-2) TSH 2.180 (0.300-4.500) uIu/ml Urine Color Yellow Urine Appearance Clear (Clear) Urine pH 7.5 (4.5-7.5) Ur Specific [place] 1.015 (1.000-1.030) Urine Protein Negative (Negative) Urine Glucose (UA) Negative (Negative) Urine Ketones Negative (Negative) Urine Blood 1+ H (Negative) Urine Nitrite Positive A (Negative) Urine Bilirubin Negative (Negative) Urine Urobilinogen Positive H (Negative) Ur Leukocyte Esterase 1+ H (Negative) Urine RBC 5-10 H (0-4) /hpf Urine WBC >30 H (0-5) /hpf Ur Epithelial Cells 0-5 (0-5) /lpf Urine Bacteria 4+ H (Negative) 01/26/19 Range/Units 19:41 WBC 14.89 H (4.8-10.8) K/uL RBC 5.85 (4.7-6.1) M/uL Hgb 17.5 (14.0-18.0) g/dL Hct 50.8 (42-52) % MCV 86.8 (80-100) fL MCH 29.9 (25-34) pg MCHC 34.4 (32-36) g/dL RDW Std Deviation 50.9 H (36.4-46.3) fL RDW Coeff of Chantelle 15.9 H (11.5-14.5) % Plt Count 107 L (130-400) K/uL MPV 11.3 H (7.4-10.4) fL Immature Gran % (Auto) 0.4 % Neut % (Auto) 86.1 % Lymph % (Auto) 7.1 % Mitchell % (Auto) 5.6 % Eos % (Auto) 0.5 % Baso % (Auto) 0.3 % Immature Gran # (Auto) 0.06 H (0.00-0.02) K/uL Neut # (Auto) 12.84 H (1.4-6.5) K/uL Lymph # (Auto) 1.05 L (1.2-3.4) K/uL Mitchell # (Auto) 0.83 H (0.11-0.59) K/uL Eos # (Auto) 0.07 (0-0.5) K/uL Baso # (Auto) 0.04 (0-0.2) K/uL Sodium (136-145) mmol/L Potassium (3.5-5.1) mmol/L Chloride (98-107) mmol/L Carbon Dioxide (21-32) mmol/L Anion Gap (3-11) BUN (7-18) mg/dl Creatinine (0.6-1.4) mg/dl Est Cr Clr Drug Dosing ml/min Est GFR ( Amer) Est GFR (Non-Af Amer) BUN/Creatinine Ratio (10-20) Glucose (70-99) mg/dl POC Lactic Acid Miki (0.90-1.70) mmol/L Calcium (8.5-10.1) mg/dl Total Bilirubin (0.2-1) mg/dl AST (15-37) U/L ALT (12-78) U/L Alkaline Phosphatase (45-117) U/L Troponin I (0-0.045) ng/ml Total Protein (6.4-8.2) gm/dl Albumin (3.4-5.0) gm/dl Globulin (2.5-4.0) gm/dl Albumin/Globulin Ratio (0.9-2) TSH (0.300-4.500) uIu/ml Urine Color Urine Appearance (Clear) Urine pH (4.5-7.5) Ur Specific [place] (1.000-1.030) Urine Protein (Negative) Urine Glucose (UA) (Negative) Urine Ketones (Negative) Urine Blood (Negative) Urine Nitrite (Negative) Urine Bilirubin (Negative) Urine Urobilinogen (Negative) Ur Leukocyte Esterase (Negative) Urine RBC (0-4) /hpf Urine WBC (0-5) /hpf Ur Epithelial Cells (0-5) /lpf Urine Bacteria (Negative) Medications Administered Discontinued Medications Sodium Chloride (Nss) 250 mls @ 999 mls/hr IV .Q16M ONE Stop: 01/26/19 19:35 Last Infusion: 01/26/19 20:31 Dose: 0 mls/hr Documented by: [id number] Admin: 01/26/19 19:50 Dose: 999 mls/hr Documented by: [id number] Ceftriaxone Sodium 2,000 mg/ (Dextrose) 70 mls @ 100 mls/hr IV NOW STA Stop: 01/26/19 21:33 Last Infusion: 01/26/19 22:12 Dose: 0 mls/hr Documented by: [id number] Admin: 01/26/19 21:20 Dose: 100 mls/hr Documented by: [id number] Code Status & VTE Plan Code Status Discussed with patient's daughter at bedside. She called her mother (patient's ) to confirm. Patient WOULD wish to have chest compressions but would NOT wish to be intubated. VTE Prophylaxis Plan VTE Prophylaxis will be ordered: Yes Supervising Physician Co-Signing Physician Notes Patient seen and examined, chart reviewed, case discussed with Dr. Hernandez and I agree with his assessment and plan as documented above. Briefly, patient is an 88yo C male with underlying dementia presenting with abdominal pain, fatigue and weakness. On exam he is afebrile, hemodynamically stable, NAD, minimal verbal response with questioning HEENT - NC/AT, PERRL, MMM, neck supple Heart - +S1/S2, regular Lungs - CTA Abd -soft, NT/ND Ext - warm, palplable pulses Labs and images reviewed. Assessment/Plan: 88yo C male presenting with generalized weakness, possible cystitis -IVF and Ceftriaxone -Follow culture results -Patient may benefit from outpatient colonoscopy to evaluate focal narrowing of the transverse colon noted on CT -REmainder of plan as above PG Care Time/CCT Total # of Minutes Spent Total Time Spent with Patient: Total time spent is greater than 50% in coordination of care (as documented) at patient's floor/unit and/or counseling patient: Resident Activity Tracking Resident Involvement: Resident Care Provided Care Provided: Adult Hospital Medicine
[2019-01-26] MEDS ORDERED: LACTATED RINGER'S 1,000 ML IV SCH (23:45)
[2019-01-26] MEDS ORDERED: ALBUTEROL HFA 8 GM INHALER INH PRN (23:45)
[2019-01-27 06:28] LABS: Basophils # (auto) 0.04 K/uL (0-0.2); Basophils % (auto) 0.4 %; Eosinophils # (auto) 0.12 K/uL (0-0.5); Eosinophils % (auto) 1.1 %; Hematocrit (blood only) 47.4 % (42-52); Hemoglobin 16.1 g/dL (14.0-18.0); Immature Granulocytes # (auto) 0.05 K/uL (0.00-0.02); Immature Granulocytes % (auto) 0.5 %; Lymphocytes # (auto) 1.63 K/uL (1.2-3.4); Lymphocytes % (auto) 14.8 %; Mean Corpuscular Volume 85.3 fL (80-100); Mean Platelet Volume 11.7 fL (7.4-10.4); Monocytes # (auto) 1.05 K/uL (0.11-0.59); Monocytes % (auto) 9.6 %; Neutrophils % (auto) 73.6 %; Platelet Count 105 K/uL (130-400); RDW Coefficient of Variation 15.9 % (11.5-14.5); RDW Standard Deviation 49.4 fL (36.4-46.3); Red Blood Count 5.56 M/uL (4.7-6.1); White Blood Count 10.99 K/uL (4.8-10.8)
[2019-01-27 06:44] LABS: BUN Creatinine Ratio 18.1 (10-20); Calcium 8.3 mg/dl (8.5-10.1); Creatinine Clr Calc Pharmacy 68.1 ml/min; Est GFR (African American) 98.9; Est GFR (Non-African American) 85.4; Potassium 3.8 mmol/L (3.5-5.1)
[2019-01-27] MEDS: dilTIAZem ER 120 MG CAPCR PO SCH (08:19)
[2019-01-27] MEDS: METOPROLOL TARTRATE 25 MG TAB PO SCH ×2 (08:19→20:07)
[2019-01-27] MEDS: PANTOprazole 40 MG TAB PO SCH (08:19)
[2019-01-27] MEDS: CEROVITE ADV FORMULA TAB PO SCH ×2 (08:19→20:07)
[2019-01-27] MEDS: ATORVASTATIN 20 MG TAB PO SCH (08:19)
[2019-01-27] MEDS: ALLOPURINOL 300 MG TAB PO SCH (08:19)
--- NOTE | 2019-01-27 11:49 | Hospitalist Progress Note ---
Date of Service January 27, 2019 Assessment & Plan (1) Generalized weakness: 88-year-old male was admitted on 26 January 2019 for weakness and likely cystitis. Weakness, lower abdominal pain, cystitis: Per daughter, never quite recovered from pneumonia about 3 weeks ago in terms of strength will consult PT/OT, look into rehab discussed with patient's today, she is open to him going to SNF rehab perhaps needing SNF longer if he does not get stronger Ongoing medical issues: - Hypertension, hyperlipidemia, CAD s/p stent 2003: Continue home metoprolol, diltiazem, atorvastatin. - Dysphasia: Underwent EGD in November 2017. Mild Schatzki's ring seen. Has had esophageal dilatation in the past. Continue home Nexium. - Paroxysmal atrial fibrillation and SVT: Continue home metoprolol and Xarelto. - Dementia: At baseline, patient knows his name and date of . - Gout: Continue home allopurinol. 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 Code status: limited, open to chest compressions, no intubation DVT prophy: Xarelto. PT/OT: Ordered. (2) Cystitis: urine culture growing GNR WBC trending down, afebrile continue Rocephin, follow up final culture will likely need 10-14 days given male, complicated UTI (3) Abdominal pain: (4) Loose stools: no further loose stools will send for C diff testing if he is able to give us a sample (5) Thrombocytopenia: low at 105k but stable will repeat tomorrow (6) Diverticulosis: no signs of diverticulitis (7) Cystic lesion of pelvic viscera: (8) Iliac artery aneurysm, left: (9) Right inguinal hernia: (10) Umbilical hernia: (11) Hypertension: BP stable (12) Hyperlipidemia: (13) CAD (coronary artery disease): no chest pain (14) Dysphagia: (15) Schatzki's ring: (16) Paroxysmal atrial fibrillation: rates controlled on anticoagulation (17) History of PSVT (paroxysmal supraventricular tachycardia): (18) Dementia: (19) Gout: (20) History of tuberculosis: Subjective patient feeling well, no real complaints he ate all of his breakfast, his says that he is always hungry no abdominal pain, no cough, no dyspnea he still feels weak, patient and family open to going to rehab if needed reviewed labs, repeat WBC shows improvement, down to 10k repeat lactic acid normal at 1.4 BMP is normal updated at the bedside discussed that urine culture already growing out GN bacilli, will continue Rocephin and follow up final results discussed case with patient's RN at the bedside, she agrees with therapy evals, very weak Review of Systems Review of Systems: All systems reviewed & are unremarkable except as noted in HPI & below Constitutional: + fatigue and + weakness; no fever, no chills and no sweats Respiratory: no cough and no dyspnea Cardiovascular: no chest pain and no edema Gastrointestinal: no abdominal pain, no nausea, no vomiting, no constipation and no diarrhea/loose stools Musculoskeletal: + muscle weakness (generalized) Physical Exam Constitutional: WD/WN, vitals as above Eyes: PERRL, conjunctivae normal, anicteric sclerae ENMT: external ear and nose normal, oropharynx normal Neck: trachea midline, no thyromegaly Respiratory: normal respiratory effort, lungs clear to auscultation Cardiovascular: RRR, no murmur, no edema Gastrointestinal (Abdomen): normal bowel sounds, soft, nontender, no hepatosplenomegaly Musculoskeletal: no cyanosis or clubbing, extremities motor strength 5/5 Skin: no rashes, warm and dry Neurologic: patellar DTR's 2+ bilat, sensation intact and PERRL, EOMI, accommodation nl, no face palsy, no dysarthria Psychiatric: A+Ox3, euthymic affect Lymphatic: no cervical or axillary lymphadenopathy Results & Data Vital Signs (Past 12 Hours) Vital Signs Temp Pulse Resp BP Pulse Ox 01/27/19 07:31 36.6 C 107 H 18 120/69 90 01/27/19 00:41 37.4 C 77 16 160/80 H 95 Laboratory Results Laboratory Results - last 24 hr 01/26/19 01/26/19 01/26/19 19:41 19:41 19:43 WBC 14.89 H RBC 5.85 Hgb 17.5 Hct 50.8 MCV 86.8 MCH 29.9 MCHC 34.4 RDW Std Deviation 50.9 H RDW Coeff of Chantelle 15.9 H Plt Count 107 L MPV 11.3 H Immature Gran % (Auto) 0.4 Neut % (Auto) 86.1 Lymph % (Auto) 7.1 [place] % (Auto) 5.6 Eos % (Auto) 0.5 Baso % (Auto) 0.3 Immature Gran # (Auto) 0.06 H Neut # (Auto) 12.84 H Lymph # (Auto) 1.05 L [place] # (Auto) 0.83 H Eos # (Auto) 0.07 Baso # (Auto) 0.04 Sodium 139 Potassium 4.4 Chloride 104 Carbon Dioxide 29 Anion Gap 6.0 BUN 13 Creatinine 0.81 Est Cr Clr Drug Dosing 62.9 Est GFR ( Amer) 92.6 Est GFR (Non-Af Amer) 79.9 BUN/Creatinine Ratio 15.5 Glucose 132 H POC Lactic Acid Miki 1.91 H Lactate Calcium 8.8 Total Bilirubin 1.3 H AST 14 L ALT 18 Alkaline Phosphatase 66 Troponin I 0.024 Total Protein 6.9 Albumin 2.7 L Globulin 4.2 H Albumin/Globulin Ratio 0.6 L TSH 2.180 Urine Color Urine Appearance Urine pH Ur Specific [place] Urine Protein Urine Glucose (UA) Urine Ketones Urine Blood Urine Nitrite Urine Bilirubin Urine Urobilinogen Ur Leukocyte Esterase Urine RBC Urine WBC Ur Epithelial Cells Urine Bacteria 01/26/19 01/27/19 01/27/19 21:00 06:06 06:06 WBC 10.99 H RBC 5.56 Hgb 16.1 Hct 47.4 MCV 85.3 MCH 29.0 MCHC 34.0 RDW Std Deviation 49.4 H RDW Coeff of Chantelle 15.9 H Plt Count 105 L MPV 11.7 H Immature Gran % (Auto) 0.5 Neut % (Auto) 73.6 Lymph % (Auto) 14.8 [place] % (Auto) 9.6 Eos % (Auto) 1.1 Baso % (Auto) 0.4 Immature Gran # (Auto) 0.05 H Neut # (Auto) 8.10 H Lymph # (Auto) 1.63 [place] # (Auto) 1.05 H Eos # (Auto) 0.12 Baso # (Auto) 0.04 Sodium 139 Potassium 3.8 Chloride 106 Carbon Dioxide 28 Anion Gap 5.0 BUN 13 Creatinine 0.69 Est Cr Clr Drug Dosing 68.1 Est GFR ( Amer) 98.9 Est GFR (Non-Af Amer) 85.4 BUN/Creatinine Ratio 18.1 Glucose 135 H POC Lactic Acid Miki Lactate Calcium 8.3 L Total Bilirubin AST ALT Alkaline Phosphatase Troponin I Total Protein Albumin Globulin Albumin/Globulin Ratio TSH Urine Color Yellow Urine Appearance Clear Urine pH 7.5 Ur Specific [place] 1.015 Urine Protein Negative Urine Glucose (UA) Negative Urine Ketones Negative Urine Blood 1+ H Urine Nitrite Positive A Urine Bilirubin Negative Urine Urobilinogen Positive H Ur Leukocyte Esterase 1+ H Urine RBC 5-10 H Urine WBC >30 H Ur Epithelial Cells 0-5 Urine Bacteria 4+ H 01/27/19 06:17 WBC RBC Hgb Hct MCV MCH MCHC RDW Std Deviation RDW Coeff of Chantelle Plt Count MPV Immature Gran % (Auto) Neut % (Auto) Lymph % (Auto) [place] % (Auto) Eos % (Auto) Baso % (Auto) Immature Gran # (Auto) Neut # (Auto) Lymph # (Auto) [place] # (Auto) Eos # (Auto) Baso # (Auto) Sodium Potassium Chloride Carbon Dioxide Anion Gap BUN Creatinine Est Cr Clr Drug Dosing Est GFR ( Amer) Est GFR (Non-Af Amer) BUN/Creatinine Ratio Glucose POC Lactic Acid Miki Lactate 1.4 Calcium Total Bilirubin AST ALT Alkaline Phosphatase Troponin I Total Protein Albumin Globulin Albumin/Globulin Ratio TSH Urine Color Urine Appearance Urine pH Ur Specific [place] Urine Protein Urine Glucose (UA) Urine Ketones Urine Blood Urine Nitrite Urine Bilirubin Urine Urobilinogen Ur Leukocyte Esterase Urine RBC Urine WBC Ur Epithelial Cells Urine Bacteria Microbiology 01/26/19 21:00 Urine,Clean Catch Urine Culture - Preliminary Gram negative bacilli Medications Administered Current Inpatient Medications Albuterol (Ventolin Hfa) 2 puffs INH Q4 PRN PRN Reason: Shortness Of Breath Or Wheezing Stop: 02/25/19 23:44 [facility] (Z[facility]oprim) [facility] [place] Stop: 02/26/19 08:59 Last Admin: 01/27/19 08:19 Dose: 300 mg Documented by: Atorvastatin Calcium (Lipitor) 20 mg PO DAILY [facility] Stop: 02/26/19 08:59 Last Admin: 01/27/19 08:19 Dose: 20 mg Documented by: Clonazepam (Klonopin) 1 mg PO [facility] Stop: 02/26/19 20:59 Diltiazem HCl (Tiazac) 120 mg PO QAM [facility] Stop: 02/26/19 08:59 Last Admin: 01/27/19 08:19 Dose: 120 mg Documented by: Ceftriaxone Sodium 1,000 mg/ (Dextrose) 50 mls @ 100 mls/hr IV Q24H [facility]; Protocol Stop: 02/06/19 20:59 Metoprolol Tartrate (Lopressor) 25 mg PO BID [facility] Stop: 02/26/19 08:59 Last Admin: 01/27/19 08:19 Dose: 25 mg Documented by: Multivitamins/Minerals (Multivitamin W/ Minerals Tab) 1 tab PO BID [facility] Stop: 02/26/19 08:59 Last Admin: 01/27/19 08:19 Dose: 1 tab Documented by: Pantoprazole Sodium (Protonix) 40 mg PO DAILY [facility] Stop: 02/26/19 08:59 Last Admin: 01/27/19 08:19 Dose: 40 mg Documented by: Rivaroxaban (Xarelto) 20 mg PO 1700 [facility] Stop: 02/26/19 16:59 PG Care Time/CCT Total # of Minutes Spent Total Time Spent with Patient: Total time spent is greater than 50% in coordination of care (as documented) at patient's floor/unit and/or counseling patient:
[2019-01-27] MEDS: RIVAROXABAN 20 MG TAB PO SCH (18:21)
[2019-01-27] MEDS: cefTRIAXone SODIUM 1,000 MG in DEXTROSE 5% 50 ML IV SCH (20:08)
[2019-01-27] MEDS: clonazePAM 0.5 MG TAB PO SCH (20:12)
[2019-01-28] MEDS: METOPROLOL TARTRATE 25 MG TAB PO SCH ×2 (08:41→20:19)
[2019-01-28] MEDS: ALLOPURINOL 300 MG TAB PO SCH (08:41)
[2019-01-28] MEDS: PANTOprazole 40 MG TAB PO SCH (08:41)
[2019-01-28] MEDS: ATORVASTATIN 20 MG TAB PO SCH (08:41)
[2019-01-28] MEDS: dilTIAZem ER 120 MG CAPCR PO SCH (08:41)
[2019-01-28] MEDS: CEROVITE ADV FORMULA TAB PO SCH ×2 (08:44→20:16)
--- NOTE | 2019-01-28 16:12 | Hospitalist Progress Note ---
Date of Service January 28, 2019 Assessment & Plan (1) Acute UTI: E coli on culture, sensitive to Rocephin plan for Keflex on d/c will need 10-14 days total no fever, WBC normal, vitals stable (2) Generalized weakness: 88-year-old male was admitted on 26 January 2019 for weakness and likely cystitis, UTI Weakness, lower abdominal pain, cystitis: Per daughter, never quite recovered from pneumonia about 3 weeks ago in terms of strength will consult PT/OT, look into rehab plan for SNF rehab tomorrow after three midnights Ongoing medical issues: - Hypertension, hyperlipidemia, CAD s/p stent 2004: Continue home metoprolol, diltiazem, atorvastatin. no chest pain while admitted - Dysphasia: Underwent EGD in November 2017. Mild Schatzki's ring seen. Has had esophageal dilatation in the past. Continue home Nexium. swallowing normally - Paroxysmal atrial fibrillation and SVT: Continue home metoprolol and Xarelto. HR stable - Dementia: At baseline, patient knows his name and date of . may need to remain at SNF even after rehab, difficult to take care of at home - Gout: Continue home allopurinol. 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 Code status: limited, open to chest compressions, no intubation DVT prophy: Xarelto. PT/OT: Ordered. (3) Cystitis: urine culture growing GNR WBC trending down, afebrile continue Rocephin, follow up final culture will likely need 10-14 days given male, complicated UTI (4) Abdominal pain: (5) Loose stools: no further loose stools C diff negative (6) Thrombocytopenia: low at 105k but stable will repeat tomorrow (7) Diverticulosis: no signs of diverticulitis (8) Cystic lesion of pelvic viscera: (9) Iliac artery aneurysm, left: (10) Right inguinal hernia: (11) Umbilical hernia: (12) Hypertension: BP stable (13) Hyperlipidemia: (14) CAD (coronary artery disease): no chest pain (15) Dysphagia: (16) Schatzki's ring: (17) Paroxysmal atrial fibrillation: rates controlled on anticoagulation (18) History of PSVT (paroxysmal supraventricular tachycardia): (19) Dementia: (20) Gout: (21) History of tuberculosis: Subjective patient doing better, more energy today eating well no chest pain, no dyspnea, no fever reviewed cultures, urine culture growing E coli, sensitive to Rocephin plan for Keflex on discharge d/w family, needs three midnights, hoping for SNF rehab tomorrow Review of Systems Review of Systems: All systems reviewed & are unremarkable except as noted in HPI & below Physical Exam Constitutional: WD/WN, vitals as above Eyes: PERRL, conjunctivae normal, anicteric sclerae ENMT: external ear and nose normal, oropharynx normal Neck: trachea midline, no thyromegaly Respiratory: normal respiratory effort, lungs clear to auscultation Cardiovascular: RRR, no murmur, no edema Gastrointestinal (Abdomen): normal bowel sounds, soft, nontender, no hepatosplenomegaly Musculoskeletal: no cyanosis or clubbing, extremities motor strength 5/5 Skin: no rashes, warm and dry Neurologic: patellar DTR's 2+ bilat, sensation intact and PERRL, EOMI, accommodation nl, no face palsy, no dysarthria Psychiatric: A+Ox3, euthymic affect Lymphatic: no cervical or axillary lymphadenopathy Results & Data Vital Signs (Past 12 Hours) Vital Signs Temp Pulse Resp BP Pulse Ox 01/28/19 14:41 36.4 C L 59 L 18 89/57 L 94 01/28/19 07:05 36.8 C 102 H 20 145/75 H 90 Laboratory Results Laboratory Results - last 24 hr 01/27/19 15:20 Stl C. diff Tox B Gene Negative Cdiff Gene Medications Administered Current Inpatient Medications Albuterol (Ventolin Hfa) 2 puffs INH Q4 PRN PRN Reason: Shortness Of Breath Or Wheezing Stop: 02/25/19 23:44 Allopurinol (Zyloprim) 300 mg PO QAM [facility] Stop: 02/26/19 08:59 Last Admin: 01/28/19 08:41 Dose: 300 mg Documented by: Atorvastatin Calcium (Lipitor) 20 mg PO DAILY [facility] Stop: 02/26/19 08:59 Last Admin: 01/28/19 08:41 Dose: 20 mg Documented by: Clonazepam (Klonopin) 1 mg PO HS [facility] Stop: 02/26/19 20:59 Last Admin: 01/27/19 20:12 Dose: 1 mg Documented by: Diltiazem HCl (Tiazac) 120 mg PO QAM [facility] Stop: 02/26/19 08:59 Last Admin: 01/28/19 08:41 Dose: 120 mg Documented by: Ceftriaxone Sodium 1,000 mg/ (Dextrose) 50 mls @ 100 mls/hr IV Q24H [facility]; Protocol Stop: 02/06/19 20:59 Last Infusion: 01/27/19 20:43 Dose: Infused Documented by: Metoprolol Tartrate (Lopressor) 25 mg PO BID [facility] Stop: 02/26/19 08:59 Last Admin: 01/28/19 08:41 Dose: 25 mg Documented by: Multivitamins/Minerals (Multivitamin W/ Minerals Tab) 1 tab PO BID [facility] Stop: 02/26/19 08:59 Last Admin: 01/28/19 08:44 Dose: Not Given Documented by: Pantoprazole Sodium (Protonix) 40 mg PO DAILY [facility] Stop: 02/26/19 08:59 Last Admin: 01/28/19 08:41 Dose: 40 mg Documented by: Rivaroxaban (Xarelto) 20 mg PO 1700 [facility] Stop: 02/26/19 16:59 Last Admin: 01/27/19 18:21 Dose: 20 mg Documented by: PG Care Time/CCT Total # of Minutes Spent Total Time Spent with Patient: Total time spent is greater than 50% in coordination of care (as documented) at patient's floor/unit and/or counseling patient:
[2019-01-28] MEDS: RIVAROXABAN 20 MG TAB PO SCH (17:35)
[2019-01-28] MEDS: clonazePAM 0.5 MG TAB PO SCH (20:16)
[2019-01-28] MEDS: cefTRIAXone SODIUM 1,000 MG in DEXTROSE 5% 50 ML IV SCH (20:21)
[2019-01-29] MEDS: ALLOPURINOL 300 MG TAB PO SCH (08:01)
[2019-01-29] MEDS: ATORVASTATIN 20 MG TAB PO SCH (08:01)
[2019-01-29] MEDS: dilTIAZem ER 120 MG CAPCR PO SCH (08:01)
[2019-01-29] MEDS: CEROVITE ADV FORMULA TAB PO SCH (08:01)
[2019-01-29] MEDS: PANTOprazole 40 MG TAB PO SCH (08:01)
[2019-01-29] MEDS: METOPROLOL TARTRATE 25 MG TAB PO SCH (08:02)
--- NOTE | 2019-01-29 12:17 | Discharge Summary ---
Date of Service January 29, 2019 Admission HPI Per Admitting Provider 88-year-old male presents with his daughter with concerns about generalized weakness that worsened acutely in the past 24 hours. Patient has baseline dementia and per daughter generally knows his name and date of , though he otherwise will not answer questions consistently or necessarily correctly. The below history is based on the daughter's account. Daughter states that the patient had pneumonia about 3 weeks ago. She says he is never quite been himself since then. He completed his last round of antibiotics (amoxicillin) this past 04Jul. He has been noted to be more fatigued during this time but it acutely worsened in the past 24 hours such that he could get out of bed today. No known fevers or vomiting. He has had loose, non-watery, non-bloody stools ever since starting the amoxicillin. No other noted acute issues at home. Of note, patient has had perhaps 5-6 UTIs in the past 12 months. She says he generally does not drink enough throughout the day. Apparently he never complains of urinary symptoms. - Past medical history includes hypertension, hyperlipidemia, CAD status post stent 2003, dysphasia, paroxysmal atrial fibrillation, SVT, dementia, gout, history of remote tuberculosis, pneumonia, multiple UTIs, T12 dermatome zoster. - Past surgical history includes left inguinal repair. - Social history includes quit smoking in with prior [id number] history. Denies history of alcohol use. Lives at home with his as primary caregiver, although patient's two daughters are very close nearby. Admission Exam Per Admitting Provider GENERAL: Awake, eyes open, will say his name when asked. No spontaneous speech. He does not appear in acute distress. HENT: Normocephalic, atraumatic. Oropharynx mildly dry. EYES: Normal conjunctiva. Sclera non-icteric. NECK: Inspection normal. CARDIAC: +S1S2 RRR, no murmurs. RESPIRATORY: Clear to auscultation. No wheezes or rales. Normal respiratory effort. GI: +BS, soft, non-distended. No tenderness to palpation. No rebound or guarding. EXTREMITIES: No pedal edema or calf tenderness. Moves both arms a bit to pull his covers on. NEURO: Will squeeze both hands and move his feet on command. Baseline dementia. Principal Diagnosis UTI Discharge Exam Constitutional WD/WN, vitals as above Eyes PERRL, conjunctivae normal, anicteric sclerae ENMT external ear and nose normal, oropharynx normal Neck trachea midline, no thyromegaly Respiratory normal respiratory effort, lungs clear to auscultation Cardiovascular RRR, no murmur, no edema Gastrointestinal (Abdomen) normal bowel sounds, soft, nontender, no hepatosplenomegaly Musculoskeletal no cyanosis or clubbing, extremities motor strength 5/5 Skin no rashes, warm and dry Neurologic patellar DTR's 2+ bilat, sensation intact and PERRL, EOMI, accommodation nl, no face palsy, no dysarthria Psychiatric A+Ox3, euthymic affect Lymphatic no cervical or axillary lymphadenopathy Discharge Data Allergies Allergy/AdvReac Type Severity Reaction Status Date / Time latex Allergy Unknown SWELLING Verified 01/26/19 19:36 AND RASH adhesive AdvReac Unknown SWELLING Verified 01/26/19 19:36 AND RASH Consultations 01/26/19 20:52 ED Decision to Admit Stat 01/26/19 23:45 Consult Case Management - Discharge Planning Routine Ordered Studies 01/26/19 19:18 CT abd pelvis wo con Stat Hospital Course (1) Acute UTI: E coli on culture, sensitive to Rocephin plan for Keflex on d/c, 500mg BID x 10 more days no fever, WBC normal, vitals stable for two days (2) Generalized weakness: 88-year-old male was admitted on 26 January 2019 for weakness and likely cystitis, UTI Weakness, lower abdominal pain, cystitis: Per daughter, never quite recovered from pneumonia about 3 weeks ago in terms of strength will consult PT/OT, look into rehab plan for [facility] today Ongoing medical issues: - Hypertension, hyperlipidemia, CAD s/p stent 2003: Continue home metoprolol, diltiazem, atorvastatin. no chest pain while admitted - Dysphasia: Underwent EGD in November 2017. Mild Schatzki's ring seen. Has had esophageal dilatation in the past. Continue home Nexium. swallowing normally - Paroxysmal atrial fibrillation and SVT: Continue home metoprolol and Xarelto. HR stable - Dementia: At baseline, patient knows his name and date of . may need to remain at SNF even after rehab, difficult to take care of at home - Gout: Continue home allopurinol. 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 Code status: limited, open to chest compressions, no intubation DVT prophy: Xarelto. (3) Cystitis: urine culture growing E coli WBC normal, afebrile treat with Keflex 500mg BID x 10 more days (4) Abdominal pain: due to cystitis, completely resolved (5) Loose stools: no further loose stools C diff negative (6) Thrombocytopenia: low at 105k but stable chronic issue (7) Diverticulosis: no signs of diverticulitis (8) Cystic lesion of pelvic viscera: (9) Iliac artery aneurysm, left: (10) Right inguinal hernia: (11) Umbilical hernia: (12) Hypertension: BP stable (13) Hyperlipidemia: (14) CAD (coronary artery disease): no chest pain (15) Dysphagia: (16) Schatzki's ring: (17) Paroxysmal atrial fibrillation: rates controlled on anticoagulation (18) History of PSVT (paroxysmal supraventricular tachycardia): (19) Dementia: (20) Gout: (21) History of tuberculosis: Total Time Total Time Spent Total Time Spent (In Minutes): 31 minutes Total Time Includes: Examination of the Patient, Discharge Planning, Medication Reconciliation and Other (talked with family and case management) Discharge Plan Discharge Items Patient Disposition: Transfer Snf Fac Reason For Visit: WEAKNESS, CYSTITIS Discharge Diagnosis: UTI, E coli Weakness and deconditioning Condition: Good Discharge Goals: Improve function and Increase independence Activity: Resume your previous activity Non-emergency contact: Primary Care Provider Call non-emergency contact if: you have any medication questions, your symptoms worsen and you have a fever Follow-up/Referrals: Saqib Combs MD [Primary Care Provider] - Diet: Regular and Heart Healthy Addtl Provider Instructions: Medications: - KEFLEX: take twice a day for 20 more doses to adequately treat E coli UTI UTI/cystitis causing weakness, dehydration responded well to IV fluids and Rocephin, feeling much better, much more alert cooperating with therapy will transition to Keflex 500mg BID x 20 more doses, next dose due this evening eating and drinking well needs rehab, will go to [facility] due to dementia, may require to stay director long term care but will see how strong he becomes with therapy FOLLOW UP - physician at [facility] in one week Prescriptions: New cephalexin [Keflex] 500 mg capsule 500 mg PO Q12H 10 Days Qty: 20 RF: 0 Continued atorvastatin 20 mg Tablet 20 mg PO DAILY RF: 0 clonazepam [Klonopin] 0.5 mg tablet 1 mg PO HS RF: 0 diltiazem HCl [Tiazac] 120 mg capsule,extended release 24 hr 120 mg PO QAM RF: 0 esomeprazole magnesium [Nexium] 40 mg Capsule,Delayed Release(Dr/Ec) 40 mg PO DAILY RF: 0 allopurinol [Zyloprim] 300 mg tablet 300 mg PO QAM RF: 0 albuterol sulfate 90 mcg/actuation HFA aerosol inhaler 2 puff inhalation Q4 PRN (Reason: Shortness Of Breath Or Wheezing) RF: 0 metoprolol tartrate 25 mg Tablet 25 mg PO BID RF: 0 PreserVision AREDS [id number] Tablet 1 tab PO BID RF: 0 Xarelto 20 mg Tablet 20 mg PO PM RF: 0 Stand-Alone Forms: [facility] Discharge Orders: Discharge Order (Routine); Ordered 01/29/19 Ordered By: Sergio Ortega Skilled Items Patient informed of condition?: Yes DNR: No Discharge Level of Care: Skilled Communicable Disease: No Discharge Prognosis: Stable Admission Data Admit Date/Time: 01/26/19 22:51 Attending Provider: Sergio Ortega Admit Provider: Fredi Hernandez Primary Care Provider: Saqib Combs Other Providers: Meri Way Service: Medical Other Interventions: Discharge Summary Assessment (RN) Last Done: 01/29/19 11:44
== END 2019-01-29 15:10 | DRG 690 ==
LOC: ED 18:59 → 4E 22:51 → SUATTDRO 22:51 → 4E 23:31